=== PATIENT | female | born 1965 | race Caucasian/White ===

== ENCOUNTER 2016-10-23 15:16 | Emergency (ER) | payer MEDICAID ==
[~2016-10-23] VITALS: Ht 170.2 cm; Wt 98.8 kg
[~2016-10-23 15:16] MED LIST: SERT25TA PO
[2016-10-23] MEDS ORDERED: OXYcodone/APAP 5/325MG TABLET ONE (16:29)
[2016-10-23] MEDS ORDERED: ONDANSETRON ODT 4 MG ONE (16:29)
[2016-10-23] MEDS ORDERED: OXYcodone/APAP 5/325MG TABLET PO ONE (16:30)
[2016-10-23] MEDS ORDERED: ONDANSETRON ODT 4 MG PO ONE (16:30)
[2016-10-23 16:59] VITALS: BP 129/81
== END 2016-10-23 17:01 | disposition home or self-care (01) ==
LOC: ED 16:15
DX: M54.2 Cervicalgia (principal); G89.29 Other chronic pain; F32.9 Major depressive disorder, single episode, unspecified
CPT/HCPCS: 99283; Q0162

== ENCOUNTER 2016-10-27 16:09 | Emergency (ER) | payer MEDICAID ==
[~2016-10-27] VITALS: Ht 170.2 cm; Wt 100.6 kg
[2016-10-27 16:12] VITALS: BP 143/99
[2016-10-27] MEDS ORDERED: ONDANSETRON ODT 4 MG ONE (16:48)
[2016-10-27] MEDS ORDERED: DIAZEPAM 5 MG TABLET ONE (16:48)
[2016-10-27] MEDS ORDERED: KETOROLAC 30 MG/1 ML ONE (16:48)
[2016-10-27] MEDS ORDERED: KETOROLAC 30 MG/1 ML IM ONE (17:00)
[2016-10-27] MEDS ORDERED: ONDANSETRON ODT 4 MG PO ONE (17:00)
[2016-10-27] MEDS ORDERED: DIAZEPAM 5 MG TABLET PO ONE (17:00)
== END 2016-10-27 18:12 | disposition home or self-care (01) ==
LOC: ED 17:15
DX: S16.1XXA Strain of muscle, fascia and tendon at neck level, initial encounter (principal); M19.90 Unspecified osteoarthritis, unspecified site; X58.XXXA Exposure to other specified factors, initial encounter; Y93.89 Activity, other specified; Y92.89 Other specified places as the place of occurrence of the external cause; Y99.8 Other external cause status; Z88.6 Allergy status to analgesic agent
CPT/HCPCS: 96372; 99283; J1885; Q0162

== ENCOUNTER 2016-12-22 14:30 | Emergency (ER) | payer MEDICAID ==
[~2016-12-22] VITALS: Ht 170.2 cm; Wt 96.1 kg
[2016-12-22 14:32] VITALS: BP 144/89
== END 2016-12-22 16:27 | disposition home or self-care (01) ==
LOC: ED 16:21
DX: S92.411A Displaced fracture of proximal phalanx of right great toe, initial encounter for closed fracture (principal); X58.XXXA Exposure to other specified factors, initial encounter; Y93.89 Activity, other specified; Y99.8 Other external cause status; Y92.410 Unspecified street and highway as the place of occurrence of the external cause

== ENCOUNTER 2017-03-14 13:52 | Emergency (ER) | payer MEDICAID ==
[~2017-03-14] VITALS: Ht 170.2 cm; Wt 82.0 kg
[2017-03-14] MEDS ORDERED: LORazepam 1MG TABLET PO ONE (14:30)
[2017-03-14] MEDS ORDERED: LIDOCAINE 1%, 20ML SQ ONE (14:30)
[2017-03-14] MEDS ORDERED: LORazepam 1MG TABLET ONE (14:36)
[2017-03-14] MEDS ORDERED: LIDOCAINE 1%, 20ML ONE (14:48)
[2017-03-14 15:24] VITALS: BP 118/68
== END 2017-03-14 16:53 | disposition home or self-care (01) ==
LOC: ED 14:47
DX: S02.5XXA Fracture of tooth (traumatic), initial encounter for closed fracture (principal); S01.512A Laceration without foreign body of oral cavity, initial encounter; S16.1XXA Strain of muscle, fascia and tendon at neck level, initial encounter; F10.120 Alcohol abuse with intoxication, uncomplicated; M19.90 Unspecified osteoarthritis, unspecified site; X58.XXXA Exposure to other specified factors, initial encounter; Y93.89 Activity, other specified; Y99.8 Other external cause status; Y92.89 Other specified places as the place of occurrence of the external cause; G89.29 Other chronic pain; M54.2 Cervicalgia
CPT/HCPCS: 12011; 70450; 70486; 72125; 99284

== ENCOUNTER 2017-05-02 12:58 | Emergency (ER) | payer MEDICAID ==
[~2017-05-02] VITALS: Ht 167.6 cm; Wt 80.0 kg
[2017-05-02 15:36] VITALS: BP 131/72
== END 2017-05-02 15:29 | disposition home or self-care (01) ==
LOC: ED 14:24
DX: F10.120 Alcohol abuse with intoxication, uncomplicated (principal)
CPT/HCPCS: 99283

== ENCOUNTER 2017-09-27 13:21 | Emergency (ER) | payer MEDICAID ==
[~2017-09-27] VITALS: Ht 170.2 cm; Wt 80.0 kg
[2017-09-27 13:23] VITALS: BP 118/94
== END 2017-09-27 15:43 | disposition home or self-care (01) ==
LOC: ED 13:58
DX: F41.1 Generalized anxiety disorder (principal); F17.200 Nicotine dependence, unspecified, uncomplicated
CPT/HCPCS: 74021; 99284

== ENCOUNTER 2017-12-10 16:10 | Inpatient (IN) | payer MEDICAID ==
[~2017-12-10] VITALS: Ht 170.2 cm; Wt 102.7 kg
[2017-12-10 07:30] VITALS: BP 109/75
[2017-12-10 16:54] LABS: BASOPHILS # (AUTO) 0.05 x10^3/uL (0-0.1); BASOPHILS % (AUTO) 1 % (0-1); EOSINOPHILS # (AUTO) 0.21 x10^3/uL (0-0.4); EOSINOPHILS % (AUTO) 4 % (1-7); LYMPHOCYTES # (AUTO) 2.07 x10^3/uL (1-3.4); LYMPHOCYTES % (AUTO) 35 % (22-44); MD NO; MEAN CORPUSCULAR HEMOGLOBIN 33.2 pg (27.0-34.8); MEAN CORPUSCULAR HGB CONC 33.7 g/dL (32.4-35.8); MEAN CORPUSCULAR VOLUME 98.4 fL (80-100); MEAN PLATELET VOLUME 7.6 fL (7.4-10.4); MONOCYTES # (AUTO) 0.54 x10^3/uL (0.2-0.8); MONOCYTES % (AUTO) 9 % (2-9); NEUTROPHILS # (AUTO) 3.11 x10^3/uL (1.8-6.8); NEUTROPHILS % (AUTO) 52 % (42-75); PLATELET COUNT 310 x10^3/uL (130-400); RED BLOOD COUNT 4.28 x10^6/uL (3.82-5.3); RED CELL DISTRIBUTION WIDTH 14.2 % (9.6-15.2)
[2017-12-10 16:58] LABS: PROTHROMBIN TIME 10.3 Seconds (9.6-11.5)
[2017-12-10] MEDS ORDERED: VANCOMYCIN PER PHARMACY IV ONE (17:00)
[2017-12-10] MEDS ORDERED: PIPERACILLIN/TAZO/PMX 3.375GM 50 ML IVPB ONE (17:00)
[2017-12-10] MEDS ORDERED: VANCOMYCIN 1,700 MG in SODIUM CHLORIDE 0.9% 250 ML IV ONE (17:00)
[2017-12-10 17:04] LABS: ALANINE AMINOTRANSFERASE 57 U/L (12-78); ALBUMIN 3.8 g/dL (3.4-5.0); ANION GAP 9 mmol/L (5-15); CALCIUM 8.5 mg/dL (8.5-10.1); CHLORIDE 112 mmol/L (98-107); CREATININE 0.89 mg/dL (0.55-1.02)
[2017-12-10 17:08] LABS: ALKALINE PHOSPHATASE 98 U/L (45-117); BILIRUBIN,TOTAL 0.3 mg/dL (0.2-1.0); TOTAL PROTEIN 7.7 g/dL (6.4-8.2); TROPONIN I < 0.015 ng/mL (0.000-0.045)
[2017-12-10] MEDS ORDERED: PIPERACILLIN/TAZO/PMX 3.375GM 50 ML ONE (17:38)
[2017-12-10] MEDS: POTASSIUM CHLORIDE 20 MEQ, MVI ADULT 10 ML, FOLIC ACID 1 MG, MAGNESIUM SULFATE 2 GM in ... IV SCH ×2 (17:41→20:08)
[2017-12-10] MEDS ORDERED: ONDANSETRON 2MG/ML, 2ML IVPush PRN (18:00)
[2017-12-10] MEDS ORDERED: DOCUSATE 100 MG CAPSULE PO PRN (18:00)
[2017-12-10] MEDS ORDERED: LORazepam 2 MG/ML, 1ML IV PRN ×4 (18:00)
[2017-12-10] MEDS ORDERED: SODIUM CHLORIDE 0.9% 1,000ML IVBOLUS ONE (18:30)
[2017-12-10 19:30] VITALS: BP 109/75
[2017-12-10] MEDS: ENOXAPARIN 40 MG/0.4 ML SQ SCH (20:17)
[2017-12-10] MEDS: CEFTRIAXONE PMX 1GM/50ML 50 ML IV SCH (20:24)
[2017-12-10] MEDS: SODIUM CHLORIDE 0.9% 1,000 ML IV SCH (20:24)
[2017-12-10] MEDS: NICOTINE 7 MG/24 HR PATCH.TD24 TD SCH (20:24)
[2017-12-10] MEDS: AZITHROMYCIN 500 MG in SODIUM CHLORIDE 0.9% 250 ML IV SCH (22:01)
[2017-12-10 22:05] VITALS: BP 109/75
[2017-12-10] MEDS: ACETAMINOPHEN 325 MG TABLET PO PRN (23:22)
[2017-12-10 23:46] VITALS: BP 99/68
[2017-12-11] MEDS: POTASSIUM CHLORIDE 20 MEQ, MVI ADULT 10 ML, FOLIC ACID 1 MG, MAGNESIUM SULFATE 2 GM in ... IV SCH ×2 (01:03→07:21)
[2017-12-11 01:09] VITALS: BP 100/66
[2017-12-11 05:18] LABS: BASOPHILS # (AUTO) 0.03 x10^3/uL (0-0.1); BASOPHILS % (AUTO) 1 % (0-1); EOSINOPHILS # (AUTO) 0.11 x10^3/uL (0-0.4); EOSINOPHILS % (AUTO) 2 % (1-7); LYMPHOCYTES # (AUTO) 1.78 x10^3/uL (1-3.4); LYMPHOCYTES % (AUTO) 39 % (22-44); MD NO; MEAN CORPUSCULAR HEMOGLOBIN 33.5 pg (27.0-34.8); MEAN CORPUSCULAR HGB CONC 33.9 g/dL (32.4-35.8); MEAN PLATELET VOLUME 7.6 fL (7.4-10.4); MONOCYTES # (AUTO) 0.49 x10^3/uL (0.2-0.8); MONOCYTES % (AUTO) 11 % (2-9); NEUTROPHILS # (AUTO) 2.15 x10^3/uL (1.8-6.8); NEUTROPHILS % (AUTO) 47 % (42-75); PLATELET COUNT 222 x10^3/uL (130-400); RED BLOOD COUNT 3.52 x10^6/uL (3.82-5.3)
[2017-12-11 05:18] LABS: ALBUMIN 2.9 g/dL (3.4-5.0); ANION GAP 10 mmol/L (5-15); CALCIUM 7.4 mg/dL (8.5-10.1); CHLORIDE 115 mmol/L (98-107)
[2017-12-11 05:23] LABS: ALANINE AMINOTRANSFERASE 45 U/L (12-78); ALKALINE PHOSPHATASE 79 U/L (45-117); BILIRUBIN,TOTAL 0.3 mg/dL (0.2-1.0); TOTAL PROTEIN 6.1 g/dL (6.4-8.2)
[2017-12-11] MEDS: LORazepam 2 MG/ML, 1ML IV PRN ×2 (06:14→14:31)
[2017-12-11] MEDS ORDERED: ALPR1TAB2 PO (06:36)
[2017-12-11 08:00] VITALS: BP 106/74
[2017-12-11] MEDS: ACETAMINOPHEN 325 MG TABLET PO PRN (08:32)
[2017-12-11] MEDS: SODIUM CHLORIDE 0.9% 1,000 ML IV SCH (08:34)
[2017-12-11] MEDS: NEUTRA PHOS K 250 MG TABLET PO SCH ×3 (09:16→20:50)
[2017-12-11] MEDS ORDERED: METOCLOPRAMIDE 5 MG/ML, 2ML IVPush ONE (09:30)
[2017-12-11 12:37] VITALS: BP 117/87
[2017-12-11] MEDS ORDERED: SODIUM CHLORIDE 0.9% 1,000 ML IV SCH (14:00)
[2017-12-11 20:00] VITALS: BP 103/73
[2017-12-11] MEDS: CEFTRIAXONE PMX 1GM/50ML 50 ML IV SCH (20:50)
[2017-12-11] MEDS: ENOXAPARIN 40 MG/0.4 ML SQ SCH (20:50)
[2017-12-11] MEDS: NICOTINE 7 MG/24 HR PATCH.TD24 TD SCH (20:51)
[2017-12-11] MEDS: LORazepam 0.5MG TABLET PO PRN (20:51)
[2017-12-11] MEDS ORDERED: LORazepam 1MG TABLET PO PRN ×4 (21:00)
[2017-12-11] MEDS: AZITHROMYCIN 500 MG in SODIUM CHLORIDE 0.9% 250 ML IV SCH (22:27)
[2017-12-12] MEDS: ACETAMINOPHEN 325 MG TABLET PO PRN (01:27)
[2017-12-12] MEDS: LORazepam 0.5MG TABLET PO PRN ×3 (01:27→21:05)
[2017-12-12] MEDS: POTASSIUM CHLORIDE 20 MEQ, MVI ADULT 10 ML, FOLIC ACID 1 MG, MAGNESIUM SULFATE 2 GM in ... IV SCH (01:27)
[2017-12-12 02:00] VITALS: BP 125/86
[2017-12-12 05:08] LABS: BASOPHILS # (AUTO) 0.03 x10^3/uL (0-0.1); BASOPHILS % (AUTO) 1 % (0-1); EOSINOPHILS # (AUTO) 0.16 x10^3/uL (0-0.4); EOSINOPHILS % (AUTO) 4 % (1-7); LYMPHOCYTES # (AUTO) 1.27 x10^3/uL (1-3.4); LYMPHOCYTES % (AUTO) 28 % (22-44); MD NO; MEAN CORPUSCULAR HEMOGLOBIN 33.7 pg (27.0-34.8); MEAN CORPUSCULAR VOLUME 99.1 fL (80-100); MEAN PLATELET VOLUME 7.8 fL (7.4-10.4); MONOCYTES # (AUTO) 0.38 x10^3/uL (0.2-0.8); MONOCYTES % (AUTO) 8 % (2-9); NEUTROPHILS # (AUTO) 2.72 x10^3/uL (1.8-6.8); NEUTROPHILS % (AUTO) 60 % (42-75); PLATELET COUNT 195 x10^3/uL (130-400); RED BLOOD COUNT 3.35 x10^6/uL (3.82-5.3); RED CELL DISTRIBUTION WIDTH 13.5 % (9.6-15.2)
[2017-12-12 05:16] LABS: ANION GAP 7 mmol/L (5-15); CALCIUM 8.1 mg/dL (8.5-10.1); CHLORIDE 112 mmol/L (98-107)
[2017-12-12 05:19] LABS: CREATININE 0.66 mg/dL (0.55-1.02)
[2017-12-12 07:57] VITALS: BP 134/91
[2017-12-12] MEDS ORDERED: HYDROcodone/APAP 5/325 TABLET PO PRN (11:00)
[2017-12-12] MEDS: HYDROcodone/APAP 5/325 TABLET PO PRN ×2 (11:09→18:33)
[2017-12-12 14:36] VITALS: BP 109/73
[2017-12-12 20:00] VITALS: BP 117/86
[2017-12-12] MEDS: NICOTINE 7 MG/24 HR PATCH.TD24 TD SCH (20:53)
[2017-12-12] MEDS: CEFTRIAXONE PMX 1GM/50ML 50 ML IV SCH (21:05)
[2017-12-12] MEDS: ENOXAPARIN 40 MG/0.4 ML SQ SCH (21:05)
[2017-12-12] MEDS: AZITHROMYCIN 500 MG in SODIUM CHLORIDE 0.9% 250 ML IV SCH (22:35)
[2017-12-13] MEDS: HYDROcodone/APAP 5/325 TABLET PO PRN ×2 (01:13→08:52)
[2017-12-13] MEDS: POTASSIUM CHLORIDE 20 MEQ, MVI ADULT 10 ML, FOLIC ACID 1 MG, MAGNESIUM SULFATE 2 GM in ... IV SCH (01:14)
[2017-12-13 01:56] VITALS: BP 127/87
[2017-12-13] MEDS: LORazepam 0.5MG TABLET PO PRN (06:42)
[2017-12-13 08:20] VITALS: BP 126/92
[2017-12-13] MEDS ORDERED: AZIT500T5 PO (11:55)
[2017-12-13] MEDS ORDERED: ACET-1600 PO (11:55)
[2017-12-13] MEDS ORDERED: MULT-224 PO (11:55)
[2017-12-13] MEDS ORDERED: CEFD300C37 PO (11:55)
[2017-12-13] MEDS ORDERED: GABA100C PO (11:55)
== END 2017-12-13 14:10 | disposition home or self-care (01) | DRG 871 ==
LOC: ED 17:04 → EDIP 17:22 → 4WST 18:33 → DCLOUNGE 12-13 13:43
PROVIDERS: ADMIT Internal Medicine; ATTEND Internal Medicine
DX: A41.9 Sepsis, unspecified organism (principal); J15.9 Unspecified bacterial pneumonia; J96.01 Acute respiratory failure with hypoxia; E87.2 Acidosis; E83.39 Other disorders of phosphorus metabolism; Z59.0 Homelessness; F10.10 Alcohol abuse, uncomplicated; F17.210 Nicotine dependence, cigarettes, uncomplicated; F41.1 Generalized anxiety disorder; K21.9 Gastro-esophageal reflux disease without esophagitis; R65.20 Severe sepsis without septic shock; Z82.61 Family history of arthritis
CPT/HCPCS: 36415; 71045; 80048; 80053; 83605; 83735; 83880; 84100; 84145; 84484; 85025; 85610; 87040; 87205; 93005; 96365; J0456; J0696; J1650; J2543; J3475; J3480; J7042; J2060; J2765; J7030; J7050

== ENCOUNTER 2017-12-14 15:34 | Emergency (ER) | payer MEDICAID ==
[~2017-12-14] VITALS: Ht 170.2 cm; Wt 95.0 kg
[~2017-12-14 15:34] MED LIST changes: +ACET-1600 PO; +ALPR1TAB2 PO; +AZIT500T5 PO; +CEFD300C37 PO; +GABA100C PO; +MULT-224 PO
[2017-12-14 16:00] LABS: BASOPHILS # (AUTO) 0.03 x10^3/uL (0-0.1); BASOPHILS % (AUTO) 1 % (0-1); EOSINOPHILS # (AUTO) 0.11 x10^3/uL (0-0.4); EOSINOPHILS % (AUTO) 2 % (1-7); LYMPHOCYTES # (AUTO) 1.84 x10^3/uL (1-3.4); LYMPHOCYTES % (AUTO) 36 % (22-44); MD NO; MEAN CORPUSCULAR HEMOGLOBIN 32.9 pg (27.0-34.8); MEAN CORPUSCULAR HGB CONC 33.3 g/dL (32.4-35.8); MEAN CORPUSCULAR VOLUME 98.7 fL (80-100); MEAN PLATELET VOLUME 7.1 fL (7.4-10.4); MONOCYTES # (AUTO) 0.46 x10^3/uL (0.2-0.8); MONOCYTES % (AUTO) 9 % (2-9); NEUTROPHILS # (AUTO) 2.74 x10^3/uL (1.8-6.8); NEUTROPHILS % (AUTO) 53 % (42-75); PLATELET COUNT 270 x10^3/uL (130-400); RED BLOOD COUNT 3.93 x10^6/uL (3.82-5.3); RED CELL DISTRIBUTION WIDTH 14.5 % (9.6-15.2)
[2017-12-14] MEDS ORDERED: SODIUM CHLORIDE 0.9% 1,000ML IVBOLUS ONE (16:00)
[2017-12-14] MEDS ORDERED: SODIUM CHLORIDE FLUSH 10ML SYR IVF ONE (16:00)
[2017-12-14 16:07] LABS: ALANINE AMINOTRANSFERASE 40 U/L (12-78); ALBUMIN 3.5 g/dL (3.4-5.0); ANION GAP 8 mmol/L (5-15); CALCIUM 8.1 mg/dL (8.5-10.1); CHLORIDE 115 mmol/L (98-107)
[2017-12-14 16:09] LABS: ALKALINE PHOSPHATASE 85 U/L (45-117); BILIRUBIN,TOTAL 0.2 mg/dL (0.2-1.0)
[2017-12-14 21:07] VITALS: BP 114/69
== END 2017-12-14 21:10 | disposition home or self-care (01) ==
LOC: ED 16:50
DX: F10.229 Alcohol dependence with intoxication, unspecified (principal); S09.90XA Unspecified injury of head, initial encounter; S00.81XA Abrasion of other part of head, initial encounter; S89.92XA Unspecified injury of left lower leg, initial encounter; S89.91XA Unspecified injury of right lower leg, initial encounter; X58.XXXA Exposure to other specified factors, initial encounter; Y93.89 Activity, other specified; Y99.8 Other external cause status; Y92.89 Other specified places as the place of occurrence of the external cause
CPT/HCPCS: 36415; 70450; 72125; 80053; 80307; 83735; 85025; 96360; 99285; J7030

== ENCOUNTER 2017-12-15 00:42 | Emergency (ER) | payer MEDICAID ==
[~2017-12-15] VITALS: Ht 160 cm; Wt 95.0 kg
[2017-12-15 01:21] LABS: BASOPHILS # (AUTO) 0.05 x10^3/uL (0-0.1); BASOPHILS % (AUTO) 1 % (0-1); EOSINOPHILS # (AUTO) 0.17 x10^3/uL (0-0.4); EOSINOPHILS % (AUTO) 3 % (1-7); LYMPHOCYTES # (AUTO) 2.41 x10^3/uL (1-3.4); LYMPHOCYTES % (AUTO) 35 % (22-44); MD NO; MEAN CORPUSCULAR HEMOGLOBIN 33.5 pg (27.0-34.8); MEAN CORPUSCULAR HGB CONC 33.5 g/dL (32.4-35.8); MEAN CORPUSCULAR VOLUME 99.9 fL (80-100); MEAN PLATELET VOLUME 6.9 fL (7.4-10.4); MONOCYTES # (AUTO) 0.69 x10^3/uL (0.2-0.8); MONOCYTES % (AUTO) 10 % (2-9); NEUTROPHILS # (AUTO) 3.49 x10^3/uL (1.8-6.8); NEUTROPHILS % (AUTO) 51 % (42-75); PLATELET COUNT 267 x10^3/uL (130-400); RED CELL DISTRIBUTION WIDTH 14.4 % (9.6-15.2)
[2017-12-15 01:30] LABS: ALANINE AMINOTRANSFERASE 41 U/L (12-78); ALBUMIN 3.5 g/dL (3.4-5.0); ANION GAP 12 mmol/L (5-15); CALCIUM 8.3 mg/dL (8.5-10.1); CHLORIDE 114 mmol/L (98-107); CREATININE 0.71 mg/dL (0.55-1.02)
[2017-12-15 01:53] LABS: ALKALINE PHOSPHATASE 85 U/L (45-117); BILIRUBIN,TOTAL 0.2 mg/dL (0.2-1.0); SALICYLATE LEVEL 2.1 mg/dL (2.8-20.0)
[2017-12-15 01:56] LABS: ACETAMINOPHEN < 2 mcg/mL (10-30)
[2017-12-15 02:52] VITALS: BP 94/63
== END 2017-12-15 06:26 | disposition home or self-care (01) ==
LOC: ED 00:54
DX: G93.41 Metabolic encephalopathy (principal); F22 Delusional disorders; F10.129 Alcohol abuse with intoxication, unspecified; F19.10 Other psychoactive substance abuse, uncomplicated; Z88.5 Allergy status to narcotic agent; Z88.8 Allergy status to other drugs, medicaments and biological substances; F41.9 Anxiety disorder, unspecified; G89.29 Other chronic pain; M19.90 Unspecified osteoarthritis, unspecified site; I25.2 Old myocardial infarction; Z79.899 Other long term (current) drug therapy
CPT/HCPCS: 36415; 70450; 71045; 80053; 80307; 80329; 85025; 93005; 99285; G0480

== ENCOUNTER 2017-12-21 13:07 | Inpatient (IN) | payer MEDICAID ==
[~2017-12-21] VITALS: Ht 170.2 cm; Wt 102.0 kg
[2017-12-21] MEDS ORDERED: ALBUTEROL/IPRATROPIUM 2.5MG/0.5MG, 3 ML ONE (13:57)
[2017-12-21] MEDS ORDERED: SODIUM CHLORIDE FLUSH 10ML SYR IVF ONE (14:00)
[2017-12-21] MEDS ORDERED: ALBUTEROL/IPRATROPIUM 2.5MG/0.5MG, 3 ML NPPB ONE (14:00)
[2017-12-21 14:27] LABS: BASOPHILS # (AUTO) 0.03 x10^3/uL (0-0.1); BASOPHILS % (AUTO) 1 % (0-1); EOSINOPHILS # (AUTO) 0.08 x10^3/uL (0-0.4); EOSINOPHILS % (AUTO) 2 % (1-7); LYMPHOCYTES # (AUTO) 1.39 x10^3/uL (1-3.4); LYMPHOCYTES % (AUTO) 29 % (22-44); MEAN CORPUSCULAR HEMOGLOBIN 33.4 pg (27.0-34.8); MEAN CORPUSCULAR HGB CONC 33.4 g/dL (32.4-35.8); MEAN CORPUSCULAR VOLUME 100.1 fL (80-100); MEAN PLATELET VOLUME 6.9 fL (7.4-10.4); MONOCYTES # (AUTO) 0.51 x10^3/uL (0.2-0.8); MONOCYTES % (AUTO) 11 % (2-9); NEUTROPHILS # (AUTO) 2.85 x10^3/uL (1.8-6.8); NEUTROPHILS % (AUTO) 59 % (42-75); PLATELET COUNT 154 x10^3/uL (130-400); RED BLOOD COUNT 3.76 x10^6/uL (3.82-5.3); RED CELL DISTRIBUTION WIDTH 15.9 % (9.6-15.2)
[2017-12-21 14:28] LABS: MD NO
[2017-12-21 14:36] LABS: ALANINE AMINOTRANSFERASE 56 U/L (12-78); ALBUMIN 3.6 g/dL (3.4-5.0); ANION GAP 12 mmol/L (5-15); CHLORIDE 107 mmol/L (98-107); CREATININE 0.66 mg/dL (0.55-1.02)
[2017-12-21 14:41] LABS: ALKALINE PHOSPHATASE 131 U/L (45-117); BILIRUBIN,TOTAL 0.4 mg/dL (0.2-1.0); TOTAL PROTEIN 7.2 g/dL (6.4-8.2)
[2017-12-21] MEDS: NS + 20MEQ KCL 1,000 ML IV SCH (16:23)
[2017-12-21] MEDS ORDERED: LORazepam 1MG TABLET PO PRN (16:30)
[2017-12-21] MEDS: DOXYCYCLINE 100 MG in DEXTROSE 5% 250 ML IV SCH (16:30)
[2017-12-21] MEDS ORDERED: ENOXAPARIN 40 MG/0.4 ML SQ SCH (16:30)
[2017-12-21] MEDS ORDERED: THIAMINE 100MG TABLET PO ONE (16:30)
[2017-12-21] MEDS ORDERED: LORazepam 2 MG/ML, 1ML IV PRN ×4 (16:30)
[2017-12-21] MEDS ORDERED: ONDANSETRON 2MG/ML, 2ML IVPush PRN (16:30)
[2017-12-21] MEDS ORDERED: ENOXAPARIN 40 MG/0.4 ML ONE (16:38)
[2017-12-21] MEDS ORDERED: methylPREDNISolone SOD SUCC 40 MG/ML ONE (16:38)
[2017-12-21] MEDS ORDERED: NS + 20MEQ KCL 1,000 ML IV ONE (16:39)
[2017-12-21] MEDS: methylPREDNISolone SOD SUCC 40 MG/ML IVPush SCH ×2 (16:47→23:52)
[2017-12-21] MEDS ORDERED: SODIUM CHLORIDE FLUSH 10ML SYR IVF PRN (17:00)
[2017-12-21 21:15] VITALS: BP 105/71
[2017-12-21] MEDS ORDERED: TEMAZEPAM 15 MG CAPSULE PO PRN (23:30)
[2017-12-22] MEDS: ONDANSETRON ODT 4 MG PO PRN ×4 (00:32→19:54)
[2017-12-22 01:42] VITALS: BP 115/79
[2017-12-22] MEDS: DOXYCYCLINE 100 MG in DEXTROSE 5% 250 ML IV SCH ×2 (04:37→17:12)
[2017-12-22 05:31] LABS: BASOPHILS % (AUTO) 0 % (0-1); EOSINOPHILS % (AUTO) 0 % (1-7); LYMPHOCYTES # (AUTO) 0.46 x10^3/uL (1-3.4); LYMPHOCYTES % (AUTO) 16 % (22-44); MD NO; MEAN CORPUSCULAR HEMOGLOBIN 33.2 pg (27.0-34.8); MEAN CORPUSCULAR HGB CONC 33.3 g/dL (32.4-35.8); MEAN CORPUSCULAR VOLUME 99.5 fL (80-100); MEAN PLATELET VOLUME 7.5 fL (7.4-10.4); MONOCYTES # (AUTO) 0.03 x10^3/uL (0.2-0.8); MONOCYTES % (AUTO) 1 % (2-9); NEUTROPHILS # (AUTO) 2.45 x10^3/uL (1.8-6.8); NEUTROPHILS % (AUTO) 83 % (42-75); PLATELET COUNT 124 x10^3/uL (130-400); RED BLOOD COUNT 3.59 x10^6/uL (3.82-5.3); RED CELL DISTRIBUTION WIDTH 15.5 % (9.6-15.2)
[2017-12-22] MEDS: methylPREDNISolone SOD SUCC 40 MG/ML IVPush SCH (05:46)
[2017-12-22 05:48] LABS: CHLORIDE 104 mmol/L (98-107)
[2017-12-22 06:07] LABS: ALANINE AMINOTRANSFERASE 74 U/L (12-78); ALBUMIN 3.2 g/dL (3.4-5.0); ALKALINE PHOSPHATASE 121 U/L (45-117); ANION GAP 13 mmol/L (5-15); BILIRUBIN,TOTAL 0.6 mg/dL (0.2-1.0); CALCIUM 7.8 mg/dL (8.5-10.1); CREATININE 0.53 mg/dL (0.55-1.02); THYROID STIMULATING HORMONE 0.406 mIU/L (0.358-3.740); TOTAL PROTEIN 6.6 g/dL (6.4-8.2)
[2017-12-22] MEDS ORDERED: MAGNESIUM SULFATE PMX 2GM/50ML 50 ML IV ONE (07:30)
[2017-12-22 08:55] VITALS: BP 131/88
[2017-12-22] MEDS: LORazepam 1MG TABLET PO PRN ×3 (09:06→19:54)
[2017-12-22] MEDS: MULTIVITAMIN 1 TABLET PO SCH (09:06)
[2017-12-22] MEDS: NS + 20MEQ KCL 1,000 ML IV SCH (09:06)
[2017-12-22] MEDS: FOLIC ACID 1 MG TABLET PO SCH (09:06)
[2017-12-22] MEDS ORDERED: ACETAMINOPHEN 325 MG TABLET PO PRN (11:00)
[2017-12-22] MEDS: HYDROcodone/APAP 5/325 TABLET PO PRN ×2 (14:10→19:54)
[2017-12-22 14:32] VITALS: BP 115/79
[2017-12-22 21:21] VITALS: BP 141/95
[2017-12-23] MEDS: LORazepam 0.5MG TABLET PO PRN ×2 (01:50→10:51)
[2017-12-23] MEDS: ONDANSETRON ODT 4 MG PO PRN (01:50)
[2017-12-23] MEDS: HYDROcodone/APAP 5/325 TABLET PO PRN ×3 (01:50→22:32)
[2017-12-23] MEDS: NS + 20MEQ KCL 1,000 ML IV SCH (01:51)
[2017-12-23 03:17] VITALS: BP 123/87
[2017-12-23] MEDS: DOXYCYCLINE 100 MG in DEXTROSE 5% 250 ML IV SCH ×2 (04:35→17:46)
[2017-12-23 06:47] VITALS: BP 100/76
[2017-12-23] MEDS: FOLIC ACID 1 MG TABLET PO SCH (08:44)
[2017-12-23] MEDS: MULTIVITAMIN 1 TABLET PO SCH (08:44)
[2017-12-23 13:45] VITALS: BP 118/83
[2017-12-23 20:23] VITALS: BP 121/86
[2017-12-24 02:11] VITALS: BP 115/78
[2017-12-24] MEDS: DOXYCYCLINE 100 MG in DEXTROSE 5% 250 ML IV SCH (04:31)
[2017-12-24] MEDS: HYDROcodone/APAP 5/325 TABLET PO PRN ×2 (04:32→10:33)
[2017-12-24] MEDS: ONDANSETRON ODT 4 MG PO PRN ×2 (04:57→08:50)
[2017-12-24] MEDS ORDERED: DOXY100T PO (07:10)
[2017-12-24] MEDS ORDERED: FOLI-17 PO (07:10)
[2017-12-24] MEDS ORDERED: MULT1TAB60 PO (07:10)
[2017-12-24 07:49] VITALS: BP 136/94
[2017-12-24] MEDS: FOLIC ACID 1 MG TABLET PO SCH (08:50)
[2017-12-24] MEDS: MULTIVITAMIN 1 TABLET PO SCH (08:50)
== END 2017-12-24 12:30 | disposition home or self-care (01) | DRG 189 ==
LOC: ED 15:37 → EDIP 15:44 → 3NE 18:20
PROVIDERS: ADMIT Internal Medicine; ATTEND Internal Medicine
DX: J96.01 Acute respiratory failure with hypoxia (principal); J44.1 Chronic obstructive pulmonary disease with (acute) exacerbation; D53.9 Nutritional anemia, unspecified; E87.6 Hypokalemia; F10.229 Alcohol dependence with intoxication, unspecified; F17.210 Nicotine dependence, cigarettes, uncomplicated; F32.9 Major depressive disorder, single episode, unspecified; F41.1 Generalized anxiety disorder; K21.9 Gastro-esophageal reflux disease without esophagitis; S80.12XA Contusion of left lower leg, initial encounter; W01.0XXA Fall on same level from slipping, tripping and stumbling without subsequent striking against object, initial encounter; Y90.8 Blood alcohol level of 240 mg/100 ml or more; G43.909 Migraine, unspecified, not intractable, without status migrainosus; Z59.0 Homelessness; Y93.89 Activity, other specified; Y92.89 Other specified places as the place of occurrence of the external cause; Y99.8 Other external cause status
CPT/HCPCS: 36415; 71045; 80053; 80307; 82140; 83735; 83880; 84100; 84443; 85014; 85018; 85025; 87040; 93005; 94640; 96372; 99285; J1650; J3480; J7060; J7620; Q0162; J2920; J3475

== ENCOUNTER 2018-01-13 08:50 | Emergency (ER) | payer MEDICAID ==
[~2018-01-13] VITALS: Ht 170.2 cm; Wt 88.8 kg
[~2018-01-13 08:50] MED LIST changes: +DOXY100T PO; +FOLI-17 PO; +MULT1TAB60 PO
[2018-01-13 10:10] LABS: BASOPHILS # (AUTO) 0.01 x10^3/uL (0-0.1); BASOPHILS % (AUTO) 0 % (0-1); EOSINOPHILS # (AUTO) 0.02 x10^3/uL (0-0.4); EOSINOPHILS % (AUTO) 1 % (1-7); LYMPHOCYTES # (AUTO) 0.52 x10^3/uL (1-3.4); LYMPHOCYTES % (AUTO) 12 % (22-44); MD NO; MEAN CORPUSCULAR HEMOGLOBIN 34.6 pg (27.0-34.8); MEAN CORPUSCULAR HGB CONC 34.5 g/dL (32.4-35.8); MEAN CORPUSCULAR VOLUME 100.2 fL (80-100); MONOCYTES # (AUTO) 0.41 x10^3/uL (0.2-0.8); MONOCYTES % (AUTO) 10 % (2-9); NEUTROPHILS # (AUTO) 3.35 x10^3/uL (1.8-6.8); NEUTROPHILS % (AUTO) 78 % (42-75); PLATELET COUNT 155 x10^3/uL (130-400); RED BLOOD COUNT 3.52 x10^6/uL (3.82-5.3); RED CELL DISTRIBUTION WIDTH 17.3 % (9.6-15.2)
[2018-01-13] MEDS ORDERED: ONDANSETRON ODT 4 MG ONE (10:10)
[2018-01-13] MEDS ORDERED: THIAMINE 100MG TABLET ONE (10:10)
[2018-01-13] MEDS ORDERED: LORazepam 1MG TABLET ONE (10:10)
[2018-01-13 10:18] LABS: ALBUMIN 3.6 g/dL (3.4-5.0); ANION GAP 15 mmol/L (5-15); CALCIUM 8.5 mg/dL (8.5-10.1); CHLORIDE 97 mmol/L (98-107); CREATININE 0.57 mg/dL (0.55-1.02)
[2018-01-13 10:58] VITALS: BP 151/106
[2018-01-13] MEDS ORDERED: THIAMINE 100MG TABLET PO ONE (11:00)
[2018-01-13] MEDS ORDERED: SODIUM CHLORIDE FLUSH 10ML SYR IVF ONE (11:00)
[2018-01-13] MEDS ORDERED: ONDANSETRON ODT 4 MG PO ONE (11:00)
[2018-01-13] MEDS ORDERED: SODIUM CHLORIDE 0.9% 1,000ML IVBOLUS ONE (11:00)
== END 2018-01-13 11:30 | disposition home or self-care (01) ==
LOC: ED 11:24
DX: M79.662 Pain in left lower leg (principal); F10.20 Alcohol dependence, uncomplicated
CPT/HCPCS: 36415; 80048; 82040; 85025; 93005; 96360; 96361; 99285; J7030; Q0162

== ENCOUNTER 2018-02-16 20:02 | Emergency (ER) | payer MEDICAID ==
[~2018-02-16] VITALS: Ht 170.2 cm; Wt 83.5 kg
[2018-02-16 20:05] VITALS: BP 120/90
[2018-02-17] MEDS ORDERED: ALPR1TAB2 PO (22:28)
== END 2018-02-16 20:54 | disposition home or self-care (01) ==
LOC: ED 20:35
DX: S80.12XA Contusion of left lower leg, initial encounter (principal); Z00.00 Encounter for general adult medical examination without abnormal findings; F17.200 Nicotine dependence, unspecified, uncomplicated; X58.XXXA Exposure to other specified factors, initial encounter; Y93.89 Activity, other specified; Y92.89 Other specified places as the place of occurrence of the external cause; Y99.8 Other external cause status
CPT/HCPCS: 99281

== ENCOUNTER 2018-02-17 13:12 | Emergency (ER) | payer MEDICAID ==
[~2018-02-17] VITALS: Ht 170.2 cm; Wt 84.0 kg
[2018-02-17] MEDS ORDERED: PLEASE ENTER HEIGHT AND WEIGHT MC SCH (13:30)
[2018-02-17] MEDS ORDERED: SODIUM CHLORIDE FLUSH 10ML SYR IVF ONE (13:30)
[2018-02-17] MEDS ORDERED: SODIUM CHLORIDE 0.9% 1,000ML IVBOLUS ONE (13:30)
[2018-02-17 13:56] LABS: BASOPHILS # (AUTO) 0.02 x10^3/uL (0-0.1); BASOPHILS % (AUTO) 0 % (0-1); EOSINOPHILS # (AUTO) 0.13 x10^3/uL (0-0.4); EOSINOPHILS % (AUTO) 2 % (1-7); LYMPHOCYTES % (AUTO) 30 % (22-44); MD NO; MEAN CORPUSCULAR HEMOGLOBIN 33.6 pg (27.0-34.8); MEAN CORPUSCULAR HGB CONC 33.9 g/dL (32.4-35.8); MEAN CORPUSCULAR VOLUME 99.3 fL (80-100); MEAN PLATELET VOLUME 7.9 fL (7.4-10.4); MONOCYTES # (AUTO) 0.53 x10^3/uL (0.2-0.8); MONOCYTES % (AUTO) 8 % (2-9); NEUTROPHILS # (AUTO) 3.92 x10^3/uL (1.8-6.8); NEUTROPHILS % (AUTO) 59 % (42-75); PLATELET COUNT 150 x10^3/uL (130-400); RED BLOOD COUNT 4.22 x10^6/uL (3.82-5.3); RED CELL DISTRIBUTION WIDTH 15.6 % (9.6-15.2)
[2018-02-17 13:57] LABS: ALBUMIN 3.6 g/dL (3.4-5.0); ANION GAP 13 mmol/L (5-15); CALCIUM 8.9 mg/dL (8.5-10.1); CHLORIDE 107 mmol/L (98-107); CREATININE 0.69 mg/dL (0.55-1.02)
[2018-02-17 17:21] LABS: MICROSCOPIC NOT IND
[2018-02-17 17:23] LABS: CULTURE INDICATED? YES
[2018-02-17 18:39] VITALS: BP 121/71
[2018-02-17] MEDS ORDERED: ALPR1TAB2 PO (22:28)
== END 2018-02-17 18:42 | disposition home or self-care (01) ==
LOC: ED 13:59
DX: F10.120 Alcohol abuse with intoxication, uncomplicated (principal); R82.99 Other abnormal findings in urine; J44.9 Chronic obstructive pulmonary disease, unspecified; Z88.1 Allergy status to other antibiotic agents; Z88.8 Allergy status to other drugs, medicaments and biological substances
CPT/HCPCS: 36415; 74021; 80048; 81003; 82040; 85025; 87086; 99285; J7030

== ENCOUNTER 2018-02-17 22:06 | Emergency (ER) | payer MEDICAID ==
[~2018-02-17] VITALS: Ht 170.2 cm; Wt 70.0 kg
[2018-02-17] MEDS ORDERED: ALPR1TAB2 PO (22:28)
[2018-02-17] MEDS ORDERED: SODIUM CHLORIDE FLUSH 10ML SYR IVF ONE (22:30)
[2018-02-17] MEDS ORDERED: SODIUM CHLORIDE 0.9% 1,000ML IVBOLUS ONE (22:30)
[2018-02-17 22:49] LABS: BASOPHILS # (AUTO) 0.03 x10^3/uL (0-0.1); BASOPHILS % (AUTO) 1 % (0-1); EOSINOPHILS # (AUTO) 0.18 x10^3/uL (0-0.4); EOSINOPHILS % (AUTO) 3 % (1-7); LYMPHOCYTES # (AUTO) 2.31 x10^3/uL (1-3.4); LYMPHOCYTES % (AUTO) 36 % (22-44); MD NO; MEAN CORPUSCULAR HGB CONC 33.6 g/dL (32.4-35.8); MEAN CORPUSCULAR VOLUME 98.3 fL (80-100); MEAN PLATELET VOLUME 7.8 fL (7.4-10.4); MONOCYTES # (AUTO) 0.59 x10^3/uL (0.2-0.8); MONOCYTES % (AUTO) 9 % (2-9); NEUTROPHILS # (AUTO) 3.39 x10^3/uL (1.8-6.8); NEUTROPHILS % (AUTO) 52 % (42-75); PLATELET COUNT 158 x10^3/uL (130-400); RED CELL DISTRIBUTION WIDTH 15.7 % (9.6-15.2)
[2018-02-17 22:51] LABS: ANION GAP 12 mmol/L (5-15); CALCIUM 8.5 mg/dL (8.5-10.1); CHLORIDE 109 mmol/L (98-107); CREATININE 0.61 mg/dL (0.55-1.02)
[2018-02-17 22:52] LABS: ALBUMIN 3.5 g/dL (3.4-5.0)
[2018-02-18 00:49] VITALS: BP 116/90
== END 2018-02-18 01:17 | disposition home or self-care (01) ==
LOC: ED 22:32
DX: G43.909 Migraine, unspecified, not intractable, without status migrainosus (principal); F10.220 Alcohol dependence with intoxication, uncomplicated; F17.200 Nicotine dependence, unspecified, uncomplicated; J44.9 Chronic obstructive pulmonary disease, unspecified; Z88.1 Allergy status to other antibiotic agents; Z88.8 Allergy status to other drugs, medicaments and biological substances
CPT/HCPCS: 36415; 80048; 82040; 85025; 93005; 99285; J7030

== ENCOUNTER 2018-03-08 16:31 | Inpatient (IN) | payer MEDICAID ==
[~2018-03-08] VITALS: Ht 170.2 cm; Wt 82.4 kg
[2018-03-08] MEDS ORDERED: ONDANSETRON ODT 4 MG ONE (16:52)
[2018-03-08] MEDS ORDERED: ONDANSETRON ODT 4 MG PO ONE (17:00)
[2018-03-08] MEDS ORDERED: THIAMINE 100 MG in SODIUM CHLORIDE 0.9% 50 ML IVPB ONE (17:00)
[2018-03-08] MEDS ORDERED: SODIUM CHLORIDE 0.9% 1,000ML IVBOLUS ONE (17:00)
[2018-03-08 17:16] LABS: BASOPHILS # (AUTO) 0.02 x10^3/uL (0-0.1); BASOPHILS % (AUTO) 0 % (0-1); EOSINOPHILS # (AUTO) 0.21 x10^3/uL (0-0.4); EOSINOPHILS % (AUTO) 4 % (1-7); LYMPHOCYTES # (AUTO) 1.92 x10^3/uL (1-3.4); LYMPHOCYTES % (AUTO) 36 % (22-44); MD NO; MEAN CORPUSCULAR HEMOGLOBIN 34.1 pg (27.0-34.8); MEAN CORPUSCULAR HGB CONC 34.3 g/dL (32.4-35.8); MEAN CORPUSCULAR VOLUME 99.4 fL (80-100); MEAN PLATELET VOLUME 6.8 fL (7.4-10.4); MONOCYTES # (AUTO) 0.39 x10^3/uL (0.2-0.8); MONOCYTES % (AUTO) 7 % (2-9); NEUTROPHILS # (AUTO) 2.87 x10^3/uL (1.8-6.8); NEUTROPHILS % (AUTO) 53 % (42-75); PLATELET COUNT 114 x10^3/uL (130-400); RED BLOOD COUNT 4.29 x10^6/uL (3.82-5.3); RED CELL DISTRIBUTION WIDTH 16.8 % (9.6-15.2)
[2018-03-08 17:20] LABS: ALANINE AMINOTRANSFERASE 64 U/L (12-78); ALBUMIN 3.2 g/dL (3.4-5.0); ANION GAP 14 mmol/L (5-15); CALCIUM 8.2 mg/dL (8.5-10.1); CHLORIDE 101 mmol/L (98-107)
[2018-03-08 17:23] LABS: ALKALINE PHOSPHATASE 128 U/L (45-117); BILIRUBIN,TOTAL 0.8 mg/dL (0.2-1.0); CREATININE 0.61 mg/dL (0.55-1.02); TOTAL PROTEIN 7.1 g/dL (6.4-8.2)
[2018-03-08] MEDS ORDERED: POTASSIUM CHLORIDE 20 MEQ TAB.ER.PRT ONE (18:53)
[2018-03-08] MEDS ORDERED: POTASSIUM CHLORIDE 20 MEQ TAB.ER.PRT PO ONE ×2 (19:00→23:30)
[2018-03-08] MEDS ORDERED: OMNIPAQUE 350 MG/ML, 100ML BOTTLE ONE (20:59)
[2018-03-08] MEDS ORDERED: CEFTRIAXONE 1,000 MG IV ONE (21:30)
[2018-03-08] MEDS ORDERED: AZITHROMYCIN 500 MG TABLET PO ONE (21:30)
[2018-03-08] MEDS ORDERED: AZITHROMYCIN 500 MG TABLET ONE (21:51)
[2018-03-08] MEDS ORDERED: CEFTRIAXONE PMX 1GM/50ML 50 ML ONE (21:51)
[2018-03-08] MEDS ORDERED: CEFTRIAXONE 1,000 MG in SODIUM CHLORIDE 0.9% 50 ML IVPB ONE (22:00)
[2018-03-08 22:06] LABS: TROPONIN I < 0.015 ng/mL (0.000-0.045)
[2018-03-08] MEDS ORDERED: DOCUSATE 100 MG CAPSULE PO PRN (23:00)
[2018-03-08] MEDS ORDERED: ONDANSETRON 2MG/ML, 2ML IVPush PRN (23:00)
[2018-03-08] MEDS ORDERED: POLYETHYLENE GLYCOL 17 GM PACKET PO PRN (23:00)
[2018-03-08] MEDS ORDERED: hydrALAzine 20 MG/ML, 1ML IVPush PRN (23:00)
[2018-03-08] MEDS ORDERED: BISACODYL 10 MG SUPP PR PRN (23:00)
[2018-03-08] MEDS ORDERED: LABETALOL 5MG/ML, 20ML IVPush PRN (23:00)
[2018-03-08] MEDS ORDERED: LORazepam 1MG TABLET PO SCH (23:00)
[2018-03-08] MEDS: NS + 20MEQ KCL 1,000 ML IV SCH (23:17)
[2018-03-08] MEDS: ENOXAPARIN 40 MG/0.4 ML SQ SCH (23:19)
[2018-03-08] MEDS ORDERED: LORazepam 2 MG/ML, 1ML IV PRN (23:45)
[2018-03-09] VITALS (7 sets, daily range): BP systolic 108–118; BP diastolic 76–84
[2018-03-09] MEDS: ONDANSETRON ODT 4 MG PO PRN ×4 (00:02→16:03)
[2018-03-09] MEDS: LORazepam 1MG TABLET PO PRN ×5 (00:07→22:05)
[2018-03-09] MEDS: AMPICILLIN/SULBACTAM 1,500 MG in SODIUM CHLORIDE 0.9% 50 ML IV SCH ×4 (00:59→18:34)
[2018-03-09 05:58] LABS: AMPHETAMINE SCREEN, URINE Negative (Negative); BARBITURATE SCREEN, URINE Negative (Negative); BENZODIAZEPINE SCREEN, URINE Positive (Negative); CANNABINOID SCREEN, URINE Negative (Negative); COCAINE SCREEN, URINE Negative (Negative); METHADONE SCREEN, URINE Negative (Negative); OPIATE SCREEN, URINE Negative (Negative)
[2018-03-09 06:11] LABS: ALBUMIN 2.8 g/dL (3.4-5.0); ANION GAP 12 mmol/L (5-15); CHLORIDE 102 mmol/L (98-107)
[2018-03-09 06:16] LABS: ALANINE AMINOTRANSFERASE 53 U/L (12-78); ALKALINE PHOSPHATASE 113 U/L (45-117); BILIRUBIN,TOTAL 0.6 mg/dL (0.2-1.0); CREATININE 0.52 mg/dL (0.55-1.02)
[2018-03-09 06:23] LABS: MEAN CORPUSCULAR HEMOGLOBIN 33.7 pg (27.0-34.8); MEAN CORPUSCULAR HGB CONC 34.2 g/dL (32.4-35.8); MEAN CORPUSCULAR VOLUME 98.5 fL (80-100); RED BLOOD COUNT 3.63 x10^6/uL (3.82-5.3)
[2018-03-09 06:44] LABS: BASOPHILS # (AUTO) 0.02 x10^3/uL (0-0.1); BASOPHILS % (AUTO) 1 % (0-1); EOSINOPHILS # (AUTO) 0.21 x10^3/uL (0-0.4); EOSINOPHILS % (AUTO) 5 % (1-7); LYMPHOCYTES # (AUTO) 1.04 x10^3/uL (1-3.4); LYMPHOCYTES % (AUTO) 24 % (22-44); MD SCAN; MEAN PLATELET VOLUME 6.7 fL (7.4-10.4); MONOCYTES # (AUTO) 0.27 x10^3/uL (0.2-0.8); MONOCYTES % (AUTO) 6 % (2-9); NEUTROPHILS # (AUTO) 2.73 x10^3/uL (1.8-6.8); NEUTROPHILS % (AUTO) 64 % (42-75); PLATELET COUNT 72 x10^3/uL (130-400)
[2018-03-09] MEDS: AZITHROMYCIN 250 MG TABLET PO SCH (08:14)
[2018-03-09] MEDS: FAMOTIDINE 20 MG TABLET PO SCH ×2 (08:14→22:05)
[2018-03-09] MEDS: THIAMINE 100MG TABLET PO SCH (08:14)
[2018-03-09] MEDS: FOLIC ACID 1 MG TABLET PO SCH (08:14)
[2018-03-09 08:36] LABS: INTERNATIONAL NORMALIZED RATIO 1.13 (0.93-1.1); PROTHROMBIN TIME 11.6 Seconds (9.6-11.5)
[2018-03-09] MEDS ORDERED: AZITHROMYCIN 500 MG TABLET PO SCH (09:00)
[2018-03-09] MEDS ORDERED: CEFTRIAXONE 1,000 MG IM SCH (09:00)
[2018-03-09] MEDS: NS + 20MEQ KCL 1,000 ML IV SCH ×2 (09:40→22:04)
[2018-03-09 18:04] LABS: CULTURE INDICATED? YES; MICROSCOPIC INDICATED
[2018-03-09] MEDS: PROMETHAZINE 25MG TABLET PO PRN (22:05)
[2018-03-09] MEDS: NITROFURANTOIN (MACROBID) 100 MG CAPSULE PO SCH (22:05)
[2018-03-09] MEDS: ENOXAPARIN 40 MG/0.4 ML SQ SCH (22:10)
[2018-03-09] MEDS ORDERED: LORazepam 1MG TABLET PO SCH (23:00)
[2018-03-10] MEDS: AMPICILLIN/SULBACTAM 1,500 MG in SODIUM CHLORIDE 0.9% 50 ML IV SCH ×2 (00:52→07:44)
[2018-03-10] MEDS: LORazepam 1MG TABLET PO PRN ×5 (04:08→23:45)
[2018-03-10] MEDS: PROMETHAZINE 25MG TABLET PO PRN (04:08)
[2018-03-10] MEDS ORDERED: METOCLOPRAMIDE 5 MG/ML, 2ML IVPush PRN (07:00)
[2018-03-10 07:10] VITALS: BP 120/87
[2018-03-10 07:25] LABS: ALBUMIN 2.7 g/dL (3.4-5.0); ANION GAP 7 mmol/L (5-15); CALCIUM 8.1 mg/dL (8.5-10.1); CHLORIDE 107 mmol/L (98-107)
[2018-03-10 07:29] LABS: ALANINE AMINOTRANSFERASE 45 U/L (12-78); ALKALINE PHOSPHATASE 117 U/L (45-117); CREATININE 0.57 mg/dL (0.55-1.02); TOTAL PROTEIN 5.6 g/dL (6.4-8.2)
[2018-03-10] MEDS: NITROFURANTOIN (MACROBID) 100 MG CAPSULE PO SCH ×2 (08:06→21:32)
[2018-03-10] MEDS: FOLIC ACID 1 MG TABLET PO SCH (08:06)
[2018-03-10] MEDS: FAMOTIDINE 20 MG TABLET PO SCH ×2 (08:07→21:32)
[2018-03-10] MEDS: AZITHROMYCIN 250 MG TABLET PO SCH (08:07)
[2018-03-10] MEDS: THIAMINE 100MG TABLET PO SCH (09:37)
[2018-03-10] MEDS: NS + 20MEQ KCL 1,000 ML IV SCH ×2 (09:38→23:45)
[2018-03-10] MEDS ORDERED: MAGNESIUM SULFATE PMX 2GM/50ML 50 ML IV ONE (10:00)
[2018-03-10] MEDS ORDERED: HEPATITIS B VACCINE/PF 20MCG/ML INJ IM-VACC ONE (13:00)
[2018-03-10] MEDS ORDERED: HEPATITIS A VACCINE 1,440 UNITS/ML IM-VACC ONE (13:00)
[2018-03-10 13:50] VITALS: BP 121/87
[2018-03-10] MEDS: SERTRALINE 50MG TABLET PO SCH (14:28)
[2018-03-10 19:23] VITALS: BP 127/88
[2018-03-10] MEDS: ENOXAPARIN 40 MG/0.4 ML SQ SCH (21:33)
[2018-03-10] MEDS ORDERED: LORazepam 1MG TABLET PO SCH (23:00)
[2018-03-11 02:33] VITALS: BP 128/78
[2018-03-11] MEDS: LORazepam 1MG TABLET PO PRN ×4 (04:58→21:00)
[2018-03-11 06:15] LABS: ANION GAP 7 mmol/L (5-15); CHLORIDE 106 mmol/L (98-107)
[2018-03-11 06:16] LABS: CREATININE 0.58 mg/dL (0.55-1.02)
[2018-03-11] MEDS ORDERED: MAGNESIUM SULF. PMX 20GM/500ML 500 ML IV PRN (07:00)
[2018-03-11] MEDS: ONDANSETRON ODT 4 MG PO PRN ×3 (07:24→20:59)
[2018-03-11] MEDS: FOLIC ACID 1 MG TABLET PO SCH (08:49)
[2018-03-11] MEDS: NITROFURANTOIN (MACROBID) 100 MG CAPSULE PO SCH ×2 (08:49→20:59)
[2018-03-11] MEDS: SERTRALINE 50MG TABLET PO SCH (08:49)
[2018-03-11] MEDS: FAMOTIDINE 20 MG TABLET PO SCH ×2 (08:49→20:59)
[2018-03-11] MEDS: THIAMINE 100MG TABLET PO SCH (08:49)
[2018-03-11 09:36] VITALS: BP 132/91
[2018-03-11] MEDS: NS + 20MEQ KCL 1,000 ML IV SCH (10:44)
[2018-03-11] MEDS ORDERED: MAGNESIUM SULFATE PMX 2GM/50ML 50 ML IV ONE (11:30)
[2018-03-11 13:42] VITALS: BP 135/96
[2018-03-11] MEDS ORDERED: LOPERAMIDE 2 MG CAPSULE PO PRN (14:00)
[2018-03-11] MEDS ORDERED: PHENAZOPYRIDINE 100 MG TABLET PO PRN (14:30)
[2018-03-11 21:03] VITALS: BP 125/88
[2018-03-11] MEDS ORDERED: LORazepam 1MG TABLET PO SCH (23:00)
[2018-03-11] MEDS: ENOXAPARIN 40 MG/0.4 ML SQ SCH (23:00)
[2018-03-12] MEDS: NS + 20MEQ KCL 1,000 ML IV SCH (00:36)
[2018-03-12 00:59] VITALS: BP 132/90
[2018-03-12] MEDS: LORazepam 1MG TABLET PO PRN ×2 (01:21→08:27)
[2018-03-12 06:31] LABS: ANION GAP 7 mmol/L (5-15); CALCIUM 8.4 mg/dL (8.5-10.1); CHLORIDE 107 mmol/L (98-107)
[2018-03-12 06:33] LABS: CREATININE 0.47 mg/dL (0.55-1.02)
[2018-03-12 07:06] VITALS: BP 126/84
[2018-03-12] MEDS: ONDANSETRON ODT 4 MG PO PRN ×2 (07:33→15:36)
[2018-03-12] MEDS: NITROFURANTOIN (MACROBID) 100 MG CAPSULE PO SCH ×2 (08:27→20:21)
[2018-03-12] MEDS: FOLIC ACID 1 MG TABLET PO SCH (08:27)
[2018-03-12] MEDS: FAMOTIDINE 20 MG TABLET PO SCH ×2 (08:27→20:21)
[2018-03-12] MEDS: THIAMINE 100MG TABLET PO SCH (08:27)
[2018-03-12] MEDS: SERTRALINE 50MG TABLET PO SCH (08:27)
[2018-03-12] MEDS ORDERED: MAGNESIUM SULFATE PMX 2GM/50ML 50 ML IV ONE (08:30)
[2018-03-12 14:25] VITALS: BP 118/83
[2018-03-12] MEDS: IBUPROFEN 200 MG TABLET PO PRN (18:26)
[2018-03-12 20:15] VITALS: BP 130/89
[2018-03-12] MEDS ORDERED: DIPHENHYDRAMINE 25 MG CAPSULE PO ONE (20:30)
[2018-03-12] MEDS: ENOXAPARIN 40 MG/0.4 ML SQ SCH (23:40)
[2018-03-13 02:55] VITALS: BP 137/87
[2018-03-13 06:52] VITALS: BP 132/93
[2018-03-13 08:02] LABS: ALANINE AMINOTRANSFERASE 81 U/L (12-78); ALBUMIN 3.1 g/dL (3.4-5.0); ANION GAP 6 mmol/L (5-15); CHLORIDE 106 mmol/L (98-107); CREATININE 0.57 mg/dL (0.55-1.02)
[2018-03-13 08:04] LABS: ALKALINE PHOSPHATASE 130 U/L (45-117); BILIRUBIN,TOTAL 1.2 mg/dL (0.2-1.0); TOTAL PROTEIN 6.8 g/dL (6.4-8.2)
[2018-03-13] MEDS: SERTRALINE 50MG TABLET PO SCH (08:19)
[2018-03-13] MEDS: FAMOTIDINE 20 MG TABLET PO SCH ×2 (08:19→21:15)
[2018-03-13] MEDS: NITROFURANTOIN (MACROBID) 100 MG CAPSULE PO SCH ×2 (08:19→21:17)
[2018-03-13] MEDS: THIAMINE 100MG TABLET PO SCH (08:20)
[2018-03-13] MEDS: FOLIC ACID 1 MG TABLET PO SCH (08:20)
[2018-03-13] MEDS: IBUPROFEN 200 MG TABLET PO PRN (08:22)
[2018-03-13] MEDS: ONDANSETRON ODT 4 MG PO PRN ×2 (08:22→23:54)
[2018-03-13 12:39] VITALS: BP 122/87
[2018-03-13 20:46] VITALS: BP 122/86
[2018-03-13] MEDS ORDERED: MELATONIN 5 MG TABLET PO SCH (21:00)
[2018-03-13] MEDS: ENOXAPARIN 40 MG/0.4 ML SQ SCH (23:54)
[2018-03-14] MEDS: IBUPROFEN 200 MG TABLET PO PRN ×2 (00:02→09:22)
[2018-03-14 01:21] VITALS: BP 141/99
[2018-03-14 06:45] VITALS: BP 117/79
[2018-03-14] MEDS: SERTRALINE 50MG TABLET PO SCH (09:21)
[2018-03-14] MEDS: THIAMINE 100MG TABLET PO SCH (09:21)
[2018-03-14] MEDS: FOLIC ACID 1 MG TABLET PO SCH (09:22)
[2018-03-14] MEDS: ONDANSETRON ODT 4 MG PO PRN (09:22)
[2018-03-14] MEDS: FAMOTIDINE 20 MG TABLET PO SCH (09:22)
[2018-03-14] MEDS: NITROFURANTOIN (MACROBID) 100 MG CAPSULE PO SCH (09:22)
[2018-03-14] MEDS ORDERED: FAMO20TA7 PO (12:09)
[2018-03-14] MEDS ORDERED: THIA100T67 PO (12:09)
[2018-03-14] MEDS ORDERED: SERT50TA5 PO (12:09)
[2018-03-14] MEDS ORDERED: NALT50TA PO (12:09)
[2018-03-14] MEDS ORDERED: MELA5TAB19 PO (12:09)
[2018-03-14 12:49] VITALS: BP 129/95
== END 2018-03-14 13:12 | disposition home or self-care (01) | DRG 190 ==
LOC: ED 17:01 → EDIP 22:33 → 3NE 22:45 → 4EST 23:43 → DCLOUNGE 03-14 13:02
PROVIDERS: ADMIT Family Medicine; ATTEND Family Medicine
PROC: HZ2ZZZZ Detoxification Services for Substance Abuse Treatment (ICD-10-PCS; principal; 2018-03-08)
DX: J44.0 Chronic obstructive pulmonary disease with (acute) lower respiratory infection (principal); J18.9 Pneumonia, unspecified organism; N39.0 Urinary tract infection, site not specified; K76.6 Portal hypertension; F10.239 Alcohol dependence with withdrawal, unspecified; F17.210 Nicotine dependence, cigarettes, uncomplicated; F10.220 Alcohol dependence with intoxication, uncomplicated; G47.00 Insomnia, unspecified; F43.10 Post-traumatic stress disorder, unspecified; J44.9 Chronic obstructive pulmonary disease, unspecified; E83.42 Hypomagnesemia; F41.1 Generalized anxiety disorder; D69.6 Thrombocytopenia, unspecified; F32.9 Major depressive disorder, single episode, unspecified; G43.909 Migraine, unspecified, not intractable, without status migrainosus; M19.90 Unspecified osteoarthritis, unspecified site; R00.0 Tachycardia, unspecified; E87.6 Hypokalemia; F10.229 Alcohol dependence with intoxication, unspecified; R16.2 Hepatomegaly with splenomegaly, not elsewhere classified; K29.00 Acute gastritis without bleeding; K29.20 Alcoholic gastritis without bleeding; R09.02 Hypoxemia; Z82.49 Family history of ischemic heart disease and other diseases of the circulatory system; Z59.0 Homelessness; Z80.3 Family history of malignant neoplasm of breast; Z88.5 Allergy status to narcotic agent; Z88.8 Allergy status to other drugs, medicaments and biological substances
CPT/HCPCS: 36415; 90632; 99285; Q0169; 71045; 71275; 76705; 80048; 80053; 80074; 80307; 81001; 82140; 82274; 83690; 83735; 83880; 84100; 84134; 84484; 85025; 85610; 85730; 87040; 87086; 90746; 93005; 96361; 96365; G0378; J0696; J1650; J3411; J3480; Q0162; Q9967; J0295; J3475; J7030; Q0163

== ENCOUNTER 2019-02-21 10:18 | Emergency (ER) | payer MEDICAID ==
[~2019-02-21] VITALS: Ht 167.6 cm; Wt 80.0 kg
[2019-02-21 11:56] VITALS: BP 123/52
== END 2019-02-21 13:20 | disposition home or self-care (01) ==
LOC: ED 11:02
DX: F10.220 Alcohol dependence with intoxication, uncomplicated (principal); R07.89 Other chest pain; R51 Headache; J44.9 Chronic obstructive pulmonary disease, unspecified; F41.1 Generalized anxiety disorder; J32.9 Chronic sinusitis, unspecified; Z90.89 Acquired absence of other organs; Z88.6 Allergy status to analgesic agent; Z88.9 Allergy status to unspecified drugs, medicaments and biological substances; Z88.8 Allergy status to other drugs, medicaments and biological substances
CPT/HCPCS: 36415; 70450; 80053; 80307; 84484; 85025; 93005; 96374; 96375; 99284; J2060; J2765; J7030

== ENCOUNTER 2019-05-07 14:20 | Emergency (ER) | payer MEDICAID ==
[~2019-05-07] VITALS: Ht 170.2 cm; Wt 83.5 kg
[~2019-05-07 14:20] MED LIST changes: +FAMO20TA7 PO; +MELA5TAB14 PO; -MULT-224 PO; +MULT-642 PO; +NALT50TA PO; +SERT50TA28 PO; +THIA100T67 PO; +TRAZ150T62 PO
[2019-05-07 14:22] VITALS: BP 122/88
--- NOTE | 2019-05-07 15:15 | NUR ---
PT TRANSPORTED TO ROOM 9 VIA WC FROM Jesse CRANE PLACED IN TRIAGE.
--- NOTE | 2019-05-07 15:21 | NUR ---
report to lee Dewitt spine precautions in place .
--- NOTE | 2019-05-07 15:25 | NUR ---
RECEIVED REPORT AND CARE FROM MEHNAZ LORA. A&OX4. PT SUPINE WITH C-SPINE PRECAUTIONS AND C-COLLAR IN PLACE. CMS AND NEURO INTACT. NAD NOTED. AWAITING EVAL BY WESTLEY MACDONALD. CALL LIGHT IN REACH. FALL PRECAUTIONS IN PLACE.
[2019-05-07] MEDS ORDERED: OXYcodone/APAP 5/325MG TABLET PO ONE (16:00)
[2019-05-07] MEDS ORDERED: OXYcodone/APAP 5/325MG TABLET ONE (16:32)
--- NOTE | 2019-05-07 16:35 | NUR ---
PT REQUESTING TO USE RESTROOM, PER WESTLEY MACDONALD WITH C-SPINE PRECAUTIONS, BEDPAN OFFERED TO PT. CT STAFF AT BEDSIDE TO TAKE PT. PT GOT OUT OF BED AND AMBULATED WITH STEADY GAIT TO RESTROOM WITH C-COLLAR ON AGAINST THIS RN, CT STAFF AND WESTLEY MACDONALD INSTRUCTION. WESTLEY MACDONALD AT BEDSIDE AWARE OF PT BEHAVIOR. PT BACK TO BED. TO MEDICATE PER REQUEST AND MD ORDER FOR PAIN. NEURO AND CMS INTACT. FALL PRECAUTIONS IN PLACE.
--- NOTE | 2019-05-07 16:35 | NUR ---
C-COLLAR REMAINS IN PLACE. PT SUPINE IN C-SPINE PRECAUTIONS. AWAITING CT.
--- NOTE | 2019-05-07 16:49 | NUR ---
CT CALLED AND NOTIFIED PT READY FOR EXAM
--- NOTE | 2019-05-07 17:05 | NUR ---
PT IN CT
--- NOTE | 2019-05-07 17:45 | NUR ---
PT BACK FROM CT. NAD NOTED. RESP REGULAR AND UNLABORED.CALL LIGHT IN REACH. AWAITING RESULTS AND THEN XRAY
--- NOTE | 2019-05-07 18:03 | NUR ---
REPORT AND CARE TO PILLO LORA AT THIS TIME.
--- NOTE | 2019-05-07 18:34 | NUR ---
Patient/Caregiver given discharge instructions and they have confirmed that they understand the instructions. Patient ambulatory with steady gait.
== END 2019-05-07 18:36 | disposition home or self-care (01) ==
LOC: ED 18:15
DX: S16.1XXA Strain of muscle, fascia and tendon at neck level, initial encounter (principal); S00.83XA Contusion of other part of head, initial encounter; S20.212A Contusion of left front wall of thorax, initial encounter; S20.211A Contusion of right front wall of thorax, initial encounter; G43.909 Migraine, unspecified, not intractable, without status migrainosus; J44.9 Chronic obstructive pulmonary disease, unspecified; F17.210 Nicotine dependence, cigarettes, uncomplicated; W10.9XXA Fall (on) (from) unspecified stairs and steps, initial encounter; Y93.89 Activity, other specified; Y92.099 Unspecified place in other non-institutional residence as the place of occurrence of the external cause; Y99.8 Other external cause status
CPT/HCPCS: 70450; 71045; 72125; 99284

== ENCOUNTER 2019-05-15 09:46 | Emergency (ER) | payer MEDICAID ==
[~2019-05-15] VITALS: Ht 170.2 cm; Wt 92.0 kg
[~2019-05-15 09:46] MED LIST changes: +AZIT500T10 PO; -AZIT500T5 PO
--- NOTE | 2019-05-15 10:06 | NUR ---
PT TO CT
--- NOTE | 2019-05-15 11:15 | NUR ---
LAB UNABLE TO OBTAIN BLOOD PRIOR. SO DESIGNER/WRITER PLACED RIGHT ARM PIV FROM WHICH LABS WERE DRAWN PATIENT THEN STRAIGHT CATHERIZED FOR SAMPLE BY EMILY WIGGINS RN, WITH DESIGNER/WRITER METAL CANS SUPERVISOR PATIENT REMAINS WITH SLURRED SPEECH, DORWSY, REQUIRING 6-7LITER OXYMASK END TIDAL 45-53 ALSO NOTED TO HAVE PRODUCTIVE COUGH WITH WHITISH/YELLOW SPUTUM WHILE CHANGING PATIENT FOR STRAIGHT CATH-PATIENT NOTED TO BE INCONTINENT (POST-ICTAL?) PROVIDER MADE AWARE OF ALL OF THE ABOVE
--- NOTE | 2019-05-15 11:23 | NUR ---
SEIZURE PRECAUTION PLACED PROVIDER ORDER UDS PATIENT POX 97% ON 7.5L OXYMASK PER PROVIDER PLAN TO DEFER IVF, WAIT FOR LABS AND MONITOR PATIENT SHE METABOLIZES ASSUMED INTOXICANT OR RECOVER FROM SEIZURE
[2019-05-15 11:26] LABS: BASOPHILS # (AUTO) 0.02 x10^3/uL (0-0.1); BASOPHILS % (AUTO) 0 % (0-1); EOSINOPHILS # (AUTO) 0.09 x10^3/uL (0-0.4); EOSINOPHILS % (AUTO) 2 % (1-7); LYMPHOCYTES # (AUTO) 1.83 x10^3/uL (1-3.4); LYMPHOCYTES % (AUTO) 32 % (22-44); MD NO; MEAN CORPUSCULAR HEMOGLOBIN 33.3 pg (27.0-34.8); MEAN CORPUSCULAR HGB CONC 32.8 g/dL (32.4-35.8); MEAN CORPUSCULAR VOLUME 101.7 fL (80-100); MEAN PLATELET VOLUME 6.3 fL (7.4-10.4); MONOCYTES # (AUTO) 0.41 x10^3/uL (0.2-0.8); MONOCYTES % (AUTO) 7 % (2-9); NEUTROPHILS # (AUTO) 3.43 x10^3/uL (1.8-6.8); NEUTROPHILS % (AUTO) 59 % (42-75); PLATELET COUNT 202 x10^3/uL (130-400); RED BLOOD COUNT 4.94 x10^6/uL (3.82-5.3)
[2019-05-15 11:38] LABS: ALANINE AMINOTRANSFERASE 34 U/L (12-78); ALBUMIN 4.4 g/dL (3.4-5.0); ANION GAP 7 mmol/L (5-15); CALCIUM 8.7 mg/dL (8.5-10.1); CHLORIDE 110 mmol/L (98-107); CREATININE 0.86 mg/dL (0.55-1.02)
[2019-05-15 11:44] LABS: ALKALINE PHOSPHATASE 122 U/L (45-117); BILIRUBIN,TOTAL 0.3 mg/dL (0.2-1.0); TOTAL PROTEIN 8.5 g/dL (6.4-8.2)
--- NOTE | 2019-05-15 12:05 | NUR ---
WITH REASSESSMENT VSS ON PSYCHOLOGY INSTRUCTOR/7L OXYMASK POC REVIEWED WITH PROVIDER-TO MTF
[2019-05-15 12:24] LABS: AMPHETAMINE SCREEN, URINE Negative (Negative); BARBITURATE SCREEN, URINE Negative (Negative); BENZODIAZEPINE SCREEN, URINE Positive (Negative); CANNABINOID SCREEN, URINE Negative (Negative); COCAINE SCREEN, URINE Negative (Negative); METHADONE SCREEN, URINE Negative (Negative); OPIATE SCREEN, URINE Negative (Negative)
--- NOTE | 2019-05-15 12:43 | NUR ---
RECEIVED REPORT FROM KAYLI, ASSUMING CARE AT THIS TIME.
--- NOTE | 2019-05-15 13:00 | NUR ---
REPORT TO VITOR LORA
--- NOTE | 2019-05-15 13:16 | NUR ---
DIET TRAY ORDERED FOR PATIENT PER PROVIDER REQUEST
--- NOTE | 2019-05-15 13:54 | NUR ---
DIET TRAY DELIVERED. PT ALERT AND SITTING UP EATING. PT STATES SHE IS FEELING BETTER.
--- NOTE | 2019-05-15 14:44 | NUR ---
PT SLEEPING ON JOSE [place]. BRENDA.
--- NOTE | 2019-05-15 15:30 | NUR ---
PT LINEN AND GOWN CHANGED. PT STOOD NEXT TO BED, STATES SHE FELT A "LITTLE DIZZY, BUT NOT BAD". CONNECTED TO ALL MONITORING. SEIZURE PAD STILL IN PLACE, CALL LIGHT IN REACH.
--- NOTE | 2019-05-15 16:30 | NUR ---
PT ALERT AND CONVERSING APPROPRIATELY. NADN. CALL LIGHT IN REACH.
--- NOTE | 2019-05-15 17:30 | NUR ---
PT O2 TURNED OFF WHILE PT SLEEPING AND PT O2 LEVEL DECREASED TO 84%, O2 INCREASED BACK TO 2L. NADN
--- NOTE | 2019-05-15 18:25 | NUR ---
PT RESTING COMFORTABLY ON [place]. BRENDA. SPEAKING IN FULL SENTENCES.
--- NOTE | 2019-05-15 19:10 | NUR ---
REPORT OF PT FROM GENO ADLER AND ASSUMING CARE OF PT AT THIS TIME.
--- NOTE | 2019-05-15 19:45 | NUR ---
PT TO XRAY AT THIS TIME VIA [facility].
--- NOTE | 2019-05-15 20:14 | NUR ---
PT ASLEEP IN [facility] AT THIS TIME;
[2019-05-15] MEDS ORDERED: ACETAMINOPHEN 325 MG TABLET ONE (21:02)
--- NOTE | 2019-05-15 21:08 | NUR ---
PT MEDICATED PER SEP. PT VSS AND UPDATED IN EMR.
[2019-05-15] MEDS ORDERED: ACETAMINOPHEN 325 MG TABLET PO ONE (21:30)
[2019-05-15 22:03] VITALS: BP 132/81
--- NOTE | 2019-05-15 22:03 | NUR ---
PT D/C WITH D/C SUMMARY. ALL QUESTIONS ANSWERED. PT AMBULATES TO REGISTRATION DESK WITH STEADY GAIT FOR D[facility] WITH TAXI VOUCHER. PT DENIES ANY OTHER NEEDS PERTAINING TO THIS VISIT. PT VSS AND UPDATED IN EMR PRIOR TO D/C.
== END 2019-05-15 22:17 | disposition home or self-care (01) ==
LOC: ED 13:22
DX: S06.9X0A Unspecified intracranial injury without loss of consciousness, initial encounter (principal); F10.129 Alcohol abuse with intoxication, unspecified; J44.9 Chronic obstructive pulmonary disease, unspecified; F41.1 Generalized anxiety disorder; G40.909 Epilepsy, unspecified, not intractable, without status epilepticus; W18.30XA Fall on same level, unspecified, initial encounter; Y93.89 Activity, other specified; Y92.89 Other specified places as the place of occurrence of the external cause; Y99.8 Other external cause status
CPT/HCPCS: 36415; 70450; 70486; 71046; 80053; 80307; 85025; 93005; 99284

== ENCOUNTER 2019-07-29 11:19 | Emergency (ER) | payer MEDICAID ==
[~2019-07-29] VITALS: Ht 170.2 cm; Wt 79.5 kg
[2019-07-29 12:20] VITALS: BP 106/78
--- NOTE | 2019-07-29 12:20 | NUR ---
PT SLEEPING, BREATHING EVEN AND UNLABORED
[2019-07-29] MEDS ORDERED: NEOSPORIN OINT. PKT 1 PACKET ONE (13:01)
--- NOTE | 2019-07-29 14:09 | NUR ---
BOYFRIEND AT BEDSIDE. PT ABLE TO WALK A SHORT DISTANCE WITHOUT ASSISTANCE. BOYFRIEND/PT LIVES 2 BLOCKS AWAY. GIVEN A TAXI VOUCHER. TO DISCHARGE WINDOW VIA W/C
== END 2019-07-29 14:12 | disposition home or self-care (01) ==
LOC: ED 12:03
DX: F10.229 Alcohol dependence with intoxication, unspecified (principal); Y90.9 Presence of alcohol in blood, level not specified
CPT/HCPCS: 99283

== ENCOUNTER 2019-07-29 20:24 | Inpatient (IN) | payer MEDICAID ==
[~2019-07-29] VITALS: Ht 170.2 cm; Wt 54.6 kg
--- NOTE | 2019-07-29 20:37 | NUR ---
PT BIB EMS FROM [facility] D/T PT BEING UNABLE TO WALK. PT HAS STRONG ETOH ODOR AND REPORTS SHE DRANK "1/5TH VODKA" TODAY. PT REPORTS SHE NORMALLY DRINKS A "LITTLE LESS THAN 1/5TH" PER DAY. PT PLACED ON 3L NC TO MAINTAIN O2 SAT ABOVE 92%. PT RESTING ON GURNEY WITH EYES CLOSED. PT PLACED ON MONITORING, CALL LIGHT WITHIN REACH, ALL SAFETY MEASURES IN PLACE.
--- NOTE | 2019-07-29 20:43 | NUR ---
ERMD IN ROOM TO PATEL PT.
[2019-07-29] MEDS ORDERED: ALBUTEROL/IPRATROPIUM 2.5MG/0.5MG, 3 ML NPPB ONE (21:00)
[2019-07-29 21:17] LABS: BASOPHILS # (AUTO) 0.04 x10^3/uL (0-0.1); BASOPHILS % (AUTO) 1 % (0-1); EOSINOPHILS # (AUTO) 0.27 x10^3/uL (0-0.4); EOSINOPHILS % (AUTO) 5 % (1-7); LYMPHOCYTES # (AUTO) 1.66 x10^3/uL (1-3.4); LYMPHOCYTES % (AUTO) 28 % (22-44); MD NO; MEAN CORPUSCULAR HEMOGLOBIN 32.9 pg (27.0-34.8); MEAN CORPUSCULAR HGB CONC 33.2 g/dL (32.4-35.8); MEAN CORPUSCULAR VOLUME 99.1 fL (80-100); MEAN PLATELET VOLUME 6.6 fL (7.4-10.4); MONOCYTES # (AUTO) 0.39 x10^3/uL (0.2-0.8); MONOCYTES % (AUTO) 7 % (2-9); NEUTROPHILS # (AUTO) 3.56 x10^3/uL (1.8-6.8); NEUTROPHILS % (AUTO) 60 % (42-75); PLATELET COUNT 128 x10^3/uL (130-400); RED BLOOD COUNT 4.28 x10^6/uL (3.82-5.3); RED CELL DISTRIBUTION WIDTH 14.3 % (9.6-15.2)
[2019-07-29 21:22] LABS: ALBUMIN 3.6 g/dL (3.4-5.0); ANION GAP 9 mmol/L (5-15); CALCIUM 8.3 mg/dL (8.5-10.1); CHLORIDE 109 mmol/L (98-107)
[2019-07-29 21:26] LABS: CREATININE 0.57 mg/dL (0.55-1.02); TROPONIN I < 0.015 ng/mL (0.000-0.045)
--- NOTE | 2019-07-29 21:28 | NUR ---
PT RESTING ON [facility].MEDICATED PER SEP.
--- NOTE | 2019-07-29 22:35 | NUR ---
REPORT TO GENO PAINTING
--- NOTE | 2019-07-29 23:17 | NUR ---
REPORT TO GENO CORTES
[2019-07-29] MEDS ORDERED: PROMETHAZINE 25 MG/ML, 1ML IM PRN (23:30)
[2019-07-29] MEDS ORDERED: DEXTROSE 50%, 50ML SYRINGE IVPush PRN (23:30)
[2019-07-29] MEDS ORDERED: GLUCAGON 1 MG IM PRN (23:30)
[2019-07-29] MEDS ORDERED: POTASSIUM CHLORIDE 20 MEQ TAB.ER.PRT PO ONE (23:30)
[2019-07-29] MEDS ORDERED: DEXTROSE 4 GM TAB.CHEW PO PRN (23:30)
[2019-07-29] MEDS ORDERED: ACETAMINOPHEN 325 MG TABLET PO PRN (23:30)
[2019-07-29] MEDS ORDERED: ONDANSETRON 2MG/ML, 2ML IVPush PRN ×2 (23:30)
[2019-07-29 23:45] LABS: ALBUMIN 3.6 g/dL (3.4-5.0); BILIRUBIN, DIRECT 0.1 mg/dL (0.1-0.2)
[2019-07-29 23:48] LABS: BILIRUBIN,INDIRECT 0.2 mg/dL (0.0-2.0); BILIRUBIN,TOTAL 0.3 mg/dL (0.2-1.0); TOTAL PROTEIN 7.1 g/dL (6.4-8.2)
--- NOTE | 2019-07-29 23:53 | NUR ---
TP RN: PER DR. BRADSHAW PT. TO REMAIN IN ED UNTIL CTA RESULTED.
[2019-07-29] MEDS ORDERED: ENOXAPARIN 40 MG/0.4 ML SQ SCH (23:59)
--- NOTE | 2019-07-30 00:04 | NUR ---
NEED REQUIRED IV FOR CTA.
--- NOTE | 2019-07-30 00:08 | NUR ---
TP RN: CT AWARE NEW IV IS PLACED.
[2019-07-30 00:18] LABS: INTERNATIONAL NORMALIZED RATIO 0.98 (0.93-1.1); PROTHROMBIN TIME 10.4 Seconds (9.6-11.5)
--- NOTE | 2019-07-30 00:29 | NUR ---
TP RN: PER DR. BRADSHAW PT. TO GO TO MED TELE INSTEAD OF MED/SURG/ONC.
[2019-07-30] MEDS ORDERED: OMNIPAQUE 350 MG/ML, 100ML BOTTLE ONE (00:36)
--- NOTE | 2019-07-30 00:36 | NUR ---
REPORT GIVEN TO GENO RICE. PT BACK FROM IMAGING.
[2019-07-30] MEDS: POTASSIUM CHLORIDE 20 MEQ, MAGNESIUM SULFATE 2 GM, THIAMINE 200 MG, MVI ADULT 10 ML, FO... IV SCH ×2 (01:26→09:27)
[2019-07-30] MEDS ORDERED: HEPARIN 5,000 UNITS/ML, 1ML IV PRN (01:30)
[2019-07-30] MEDS ORDERED: HEPARIN 5,000 UNITS/ML, 1ML IV ONE ×2 (01:30→03:30)
[2019-07-30] MEDS ORDERED: HEPARIN 25,000 UNITS/500ML PMX 500 ML IV PRN ×2 (01:30→03:30)
[2019-07-30 01:55] VITALS: BP 130/74
[2019-07-30] MEDS: LORazepam 2 MG/ML, 1ML IVPush PRN ×4 (01:57→15:40)
[2019-07-30] MEDS: PIPERACILLIN/TAZO/PMX 3.375GM 50 ML IV SCH ×3 (02:01→13:52)
[2019-07-30 03:53] LABS: BASOPHILS # (AUTO) 0.01 x10^3/uL (0-0.1); BASOPHILS % (AUTO) 0 % (0-1); EOSINOPHILS # (AUTO) 0.02 x10^3/uL (0-0.4); EOSINOPHILS % (AUTO) 0 % (1-7); LYMPHOCYTES # (AUTO) 0.35 x10^3/uL (1-3.4); LYMPHOCYTES % (AUTO) 7 % (22-44); MD NO; MEAN CORPUSCULAR HEMOGLOBIN 32.8 pg (27.0-34.8); MEAN CORPUSCULAR VOLUME 99.4 fL (80-100); MONOCYTES # (AUTO) 0.04 x10^3/uL (0.2-0.8); MONOCYTES % (AUTO) 1 % (2-9); NEUTROPHILS # (AUTO) 4.53 x10^3/uL (1.8-6.8); NEUTROPHILS % (AUTO) 92 % (42-75); PLATELET COUNT 157 x10^3/uL (130-400); RED BLOOD COUNT 4.49 x10^6/uL (3.82-5.3); RED CELL DISTRIBUTION WIDTH 14.6 % (9.6-15.2)
[2019-07-30 03:55] LABS: ANION GAP 14 mmol/L (5-15); CALCIUM 8.1 mg/dL (8.5-10.1); CHLORIDE 105 mmol/L (98-107); CREATININE 0.53 mg/dL (0.55-1.02)
[2019-07-30] MEDS ORDERED: HEPARIN 25,000 UNITS/250ML PMX 250 ML IV PRN (04:23)
[2019-07-30] MEDS: HEPARIN 25,000 UNITS/250ML PMX 250 ML IV PRN (04:38)
[2019-07-30 06:58] VITALS: BP 111/80
[2019-07-30] MEDS: SODIUM CHLORIDE FLUSH 10ML SYR IVF SCH ×2 (07:27→20:42)
[2019-07-30 07:34] LABS: AMPHETAMINE SCREEN, URINE Positive (Negative); BARBITURATE SCREEN, URINE Negative (Negative); BENZODIAZEPINE SCREEN, URINE Positive (Negative); CANNABINOID SCREEN, URINE Negative (Negative); COCAINE SCREEN, URINE Negative (Negative); METHADONE SCREEN, URINE Negative (Negative); OPIATE SCREEN, URINE Negative (Negative)
[2019-07-30] MEDS: HEPARIN 5,000 UNITS/ML, 1ML IV PRN ×3 (09:43→21:19)
[2019-07-30] MEDS: SERTRALINE 100MG TABLET PO SCH (11:28)
[2019-07-30 12:03] VITALS: BP 111/78
[2019-07-30] MEDS: HYDROcodone/APAP 5/325 TABLET PO PRN ×2 (12:55→17:59)
[2019-07-30 20:32] VITALS: BP 145/94
[2019-07-30] MEDS: TRAZODONE 50MG TABLET PO PRN (20:42)
[2019-07-31 02:41] VITALS: BP 112/75
[2019-07-31 03:53] LABS: ANION GAP 3 mmol/L (5-15); CALCIUM 8.9 mg/dL (8.5-10.1); CHLORIDE 107 mmol/L (98-107); CREATININE 0.55 mg/dL (0.55-1.02)
[2019-07-31 03:59] LABS: BASOPHILS # (AUTO) 0.02 x10^3/uL (0-0.1); BASOPHILS % (AUTO) 0 % (0-1); EOSINOPHILS # (AUTO) 0.01 x10^3/uL (0-0.4); EOSINOPHILS % (AUTO) 0 % (1-7); LYMPHOCYTES # (AUTO) 0.86 x10^3/uL (1-3.4); LYMPHOCYTES % (AUTO) 12 % (22-44); MD NO; MEAN CORPUSCULAR HEMOGLOBIN 33.4 pg (27.0-34.8); MEAN CORPUSCULAR HGB CONC 33.8 g/dL (32.4-35.8); MEAN CORPUSCULAR VOLUME 98.8 fL (80-100); MEAN PLATELET VOLUME 6.9 fL (7.4-10.4); MONOCYTES # (AUTO) 0.47 x10^3/uL (0.2-0.8); MONOCYTES % (AUTO) 7 % (2-9); NEUTROPHILS # (AUTO) 5.71 x10^3/uL (1.8-6.8); NEUTROPHILS % (AUTO) 81 % (42-75); PLATELET COUNT 113 x10^3/uL (130-400); RED BLOOD COUNT 3.23 x10^6/uL (3.82-5.3); RED CELL DISTRIBUTION WIDTH 14.1 % (9.6-15.2)
[2019-07-31] MEDS: LORazepam 2 MG/ML, 1ML IVPush PRN ×2 (04:08→08:38)
[2019-07-31] MEDS: HEPARIN 5,000 UNITS/ML, 1ML IV PRN ×2 (04:08→17:40)
[2019-07-31] MEDS: HEPARIN 25,000 UNITS/250ML PMX 250 ML IV PRN (05:56)
[2019-07-31] MEDS: HYDROcodone/APAP 5/325 TABLET PO PRN ×3 (06:01→17:45)
[2019-07-31 07:10] VITALS: BP 110/74
[2019-07-31] MEDS: SERTRALINE 100MG TABLET PO SCH (08:38)
[2019-07-31] MEDS: SODIUM CHLORIDE FLUSH 10ML SYR IVF SCH ×2 (08:39→21:04)
[2019-07-31] MEDS: AMOXICILLIN/CLAV 875-125MG TABLET PO SCH ×2 (12:38→21:03)
[2019-07-31 14:13] VITALS: BP 108/64
[2019-07-31] MEDS: ALPRazolam 1MG TAB PO PRN (14:17)
[2019-07-31] MEDS ORDERED: SENNA/DOCUSATE TABLET PO PRN (15:00)
[2019-07-31] MEDS ORDERED: QUETIAPINE 25MG TABLET PO PRN (15:00)
[2019-07-31] MEDS ORDERED: PHARMACY INSTRUCTION MC PRN (15:00)
[2019-07-31 19:12] VITALS: BP 115/79
[2019-07-31] MEDS ORDERED: MELATONIN 3 MG TABLET PO SCH (21:00)
[2019-07-31] MEDS: TRAZODONE 50MG TABLET PO PRN (21:03)
[2019-07-31] MEDS: APIXABAN 5 MG TABLET PO SCH (21:03)
[2019-08-01 01:18] VITALS: BP 108/72
[2019-08-01 06:15] VITALS: BP 111/76
[2019-08-01] MEDS: HYDROcodone/APAP 5/325 TABLET PO PRN ×3 (06:41→19:34)
[2019-08-01] MEDS: SERTRALINE 100MG TABLET PO SCH (10:34)
[2019-08-01] MEDS: AMOXICILLIN/CLAV 875-125MG TABLET PO SCH ×2 (10:34→20:07)
[2019-08-01] MEDS: APIXABAN 5 MG TABLET PO SCH ×2 (10:34→20:07)
[2019-08-01] MEDS: ALPRazolam 1MG TAB PO PRN (10:35)
[2019-08-01] MEDS: SODIUM CHLORIDE FLUSH 10ML SYR IVF SCH ×2 (10:36→20:07)
[2019-08-01] MEDS ORDERED: GUAIFENESIN/COD200MG-20MG/10ML LIQUID PO PRN (11:30)
[2019-08-01 12:37] VITALS: BP 111/80
[2019-08-01] MEDS: SUCRALFATE 1 GM TABLET PO SCH ×2 (16:20→20:07)
[2019-08-01] MEDS: OMEPRAZOLE 20 MG CAPSULE.DR PO SCH (16:20)
[2019-08-01 19:34] VITALS: BP 118/81
[2019-08-01] MEDS: TRAZODONE 50MG TABLET PO PRN (20:07)
[2019-08-02 01:40] VITALS: BP 110/76
[2019-08-02] MEDS: ALPRazolam 1MG TAB PO PRN (05:21)
[2019-08-02] MEDS: OMEPRAZOLE 20 MG CAPSULE.DR PO SCH (05:21)
[2019-08-02 05:32] LABS: ANION GAP 6 mmol/L (5-15); CHLORIDE 107 mmol/L (98-107)
[2019-08-02 05:34] LABS: BASOPHILS # (AUTO) 0.02 x10^3/uL (0-0.1); BASOPHILS % (AUTO) 1 % (0-1); CREATININE 0.54 mg/dL (0.55-1.02); EOSINOPHILS % (AUTO) 6 % (1-7); LYMPHOCYTES # (AUTO) 1.21 x10^3/uL (1-3.4); LYMPHOCYTES % (AUTO) 34 % (22-44); MD NO; MEAN CORPUSCULAR HEMOGLOBIN 33.3 pg (27.0-34.8); MEAN PLATELET VOLUME 7.7 fL (7.4-10.4); MONOCYTES # (AUTO) 0.32 x10^3/uL (0.2-0.8); MONOCYTES % (AUTO) 9 % (2-9); NEUTROPHILS # (AUTO) 1.82 x10^3/uL (1.8-6.8); NEUTROPHILS % (AUTO) 51 % (42-75); PLATELET COUNT 101 x10^3/uL (130-400); RED BLOOD COUNT 3.51 x10^6/uL (3.82-5.3); RED CELL DISTRIBUTION WIDTH 13.9 % (9.6-15.2)
[2019-08-02] MEDS: SUCRALFATE 1 GM TABLET PO SCH ×2 (06:33→10:45)
[2019-08-02] MEDS: HYDROcodone/APAP 5/325 TABLET PO PRN ×2 (06:33→10:48)
[2019-08-02 07:26] VITALS: BP 117/82
[2019-08-02] MEDS: APIXABAN 5 MG TABLET PO SCH (08:12)
[2019-08-02] MEDS: SERTRALINE 100MG TABLET PO SCH (08:12)
[2019-08-02] MEDS: AMOXICILLIN/CLAV 875-125MG TABLET PO SCH (08:12)
[2019-08-02] MEDS: SODIUM CHLORIDE FLUSH 10ML SYR IVF SCH (08:12)
[2019-08-02] MEDS ORDERED: SUCR1TAB33 PO (11:06)
[2019-08-02] MEDS ORDERED: SERT100T32 PO (11:06)
[2019-08-02] MEDS ORDERED: SENN-193 PO (11:06)
[2019-08-02] MEDS ORDERED: OMEP-110 PO (11:06)
[2019-08-02] MEDS ORDERED: APIX5TAB PO (11:06)
[2019-08-02] MEDS ORDERED: HYDR-3237 PO (11:06)
[2019-08-02] MEDS ORDERED: AMOX1TAB12 PO (11:06)
== END 2019-08-02 12:30 | disposition home or self-care (01) | DRG 177 ==
LOC: ED 22:05 → EDIP 22:29 → 4EST 07-30 00:51 → DCLOUNGE 08-02 12:14
PROVIDERS: ADMIT Family Medicine; ATTEND Family Medicine
DX: J69.0 Pneumonitis due to inhalation of food and vomit (principal); I26.99 Other pulmonary embolism without acute cor pulmonale; G93.41 Metabolic encephalopathy; J96.01 Acute respiratory failure with hypoxia; D69.6 Thrombocytopenia, unspecified; E16.2 Hypoglycemia, unspecified; E87.6 Hypokalemia; F10.220 Alcohol dependence with intoxication, uncomplicated; F39 Unspecified mood [affective] disorder; I51.7 Cardiomegaly; K76.0 Fatty (change of) liver, not elsewhere classified; K80.20 Calculus of gallbladder without cholecystitis without obstruction; Z59.0 Homelessness; Z90.49 Acquired absence of other specified parts of digestive tract; G43.909 Migraine, unspecified, not intractable, without status migrainosus; G89.29 Other chronic pain
CPT/HCPCS: 36415; 99285; J7042; J7620; 71045; 71275; 80048; 80076; 80307; 82040; 82962; 83605; 83735; 84100; 84484; 85025; 85520; 85610; 93005; 93306; 94640; G0378; J1644; J2543; J3411; J3475; J3480; Q9967; J2060; J7512

== ENCOUNTER 2019-09-07 20:16 | Emergency (ER) | payer MEDICAID ==
[~2019-09-07] VITALS: Ht 170.2 cm; Wt 72.0 kg
[~2019-09-07 20:16] MED LIST changes: +AMOX1TAB12 PO; +APIX5TAB PO; +HYDR-3237 PO; +OMEP-110 PO; +SENN-193 PO; +SERT100T32 PO; +SUCR1TAB33 PO
--- NOTE | 2019-09-07 22:00 | NUR ---
REPORT RECEIVED AND CARE ASSUMED. PT SLEEPING WITH RESP EVEN AND UNLABORED. PT AWAKES EASILY TO VERBAL. PT IS ABLE TO ANSWER MOST QUESTIONS APPROPIATELY. PT DENIES MEDICAL COMPLAINTS AT THIS TIME. WILL D/C PT HOME WHEN SAFE TO DO SO. DISCUSSED FALL RISK PRECAUTIONS WITH PT, WHO VERBALIZES UNDERSTANDING. CALL LIGHT IS WITHIN REACH. SIDERAILS UP AND BED IN LOWEST POSITION. VSS.
--- NOTE | 2019-09-07 22:01 | NUR ---
REPORT GIVEN TO GENO MEDINA.
--- NOTE | 2019-09-07 23:00 | NUR ---
ATTEMPTED TO AMBULATE PT. PT IS UNSTEADY. UNSAFE TO D/C AT THIS TIME. PT IS ORIENTED X4. AWAKES EASILY. NO S/S OF ACUTE DISTRESS. VSS. WILL D/C HOME WHEN PT IS MORE SOBER. CALL LIGHT IN REACH AND FALL PRECAUTIONS REENFORCED.
--- NOTE | 2019-09-08 00:15 | NUR ---
Pt sleeping with resp even and unlabored. VSS. Call light in reach.
--- NOTE | 2019-09-08 01:15 | NUR ---
Pt up to BR with assist. Remains with unsteady gait. Unsafe to d/c home. VSS. Call light in reach. Pt aware of POC--will d/c when more sober.
--- NOTE | 2019-09-08 02:00 | NUR ---
Pt sleeping with no s/s of acute distress. VSS. Resp even and unlabored. Call light in reach.
[2019-09-08 03:15] VITALS: BP 103/68
== END 2019-09-08 03:18 | disposition home or self-care (01) ==
LOC: ED 23:14
DX: F10.229 Alcohol dependence with intoxication, unspecified (principal); Y90.0 Blood alcohol level of less than 20 mg/100 ml; J44.9 Chronic obstructive pulmonary disease, unspecified
CPT/HCPCS: 99285

== ENCOUNTER 2019-09-09 23:27 | Emergency (ER) | payer MEDICAID ==
--- NOTE | 2019-09-09 23:39 | NUR ---
53 Y/O FEMALE JANETH [facility] AFTER FALLING ASLEEP IN HER CHAIR AND FALLING TO THE GROUND STRIKING HER HEAD ON THE FLOOR. DENIES LOC. PT DENIES ETOH HOWEVER SMELLS HEAVILY OF ALCOHOL. ALERT AND ORIENTED. DENIES ANY COMPLAINTS. UNKNOWN MEDICAL HISTORY, PT NOT COOPERATIVE WITH TRIAGE QUESTIONS. PT DOES TAKE ELIQUIS. ALL MONITORING EQUIPMENT APPLIED. EKG DONE. VITALS STABLE. WILL CONTINUE TO MONITOR.
--- NOTE | 2019-09-09 23:43 | NUR ---
FSBS 95
--- NOTE | 2019-09-10 00:02 | NUR ---
PT BACK FROM CT, LAB AT BEDSIDE
[2019-09-10 00:16] LABS: BASOPHILS # (AUTO) 0.03 x10^3/uL (0-0.1); BASOPHILS % (AUTO) 1 % (0-1); EOSINOPHILS # (AUTO) 0.15 x10^3/uL (0-0.4); EOSINOPHILS % (AUTO) 3 % (1-7); LYMPHOCYTES # (AUTO) 1.79 x10^3/uL (1-3.4); LYMPHOCYTES % (AUTO) 37 % (22-44); MD NO; MEAN CORPUSCULAR HEMOGLOBIN 32.2 pg (27.0-34.8); MEAN CORPUSCULAR HGB CONC 33.6 g/dL (32.4-35.8); MEAN CORPUSCULAR VOLUME 95.9 fL (80-100); MEAN PLATELET VOLUME 6.8 fL (7.4-10.4); MONOCYTES # (AUTO) 0.47 x10^3/uL (0.2-0.8); MONOCYTES % (AUTO) 10 % (2-9); NEUTROPHILS # (AUTO) 2.35 x10^3/uL (1.8-6.8); NEUTROPHILS % (AUTO) 49 % (42-75); PLATELET COUNT 188 x10^3/uL (130-400); RED BLOOD COUNT 3.54 x10^6/uL (3.82-5.3); RED CELL DISTRIBUTION WIDTH 14.8 % (9.6-15.2)
[2019-09-10 00:26] LABS: ALANINE AMINOTRANSFERASE 22 U/L (12-78); ALBUMIN 3.2 g/dL (3.4-5.0); ANION GAP 9 mmol/L (5-15); CALCIUM 8.5 mg/dL (8.5-10.1); CHLORIDE 107 mmol/L (98-107); CREATININE 0.55 mg/dL (0.55-1.02)
--- NOTE | 2019-09-10 00:26 | NUR ---
PT ASSISTED TO RESTROOM, BACK TO BED WITHOUT DIFFICULTY
--- NOTE | 2019-09-10 00:35 | NUR ---
float rn: pt up to bathroom with sba. pt back in bed and side rails up in low locked position.
[2019-09-10 00:37] LABS: ALKALINE PHOSPHATASE 98 U/L (45-117); BILIRUBIN,TOTAL 0.3 mg/dL (0.2-1.0); TOTAL PROTEIN 6.7 g/dL (6.4-8.2)
--- NOTE | 2019-09-10 01:40 | NUR ---
PT RESTING ON GURNEY, RESPIRATIONS EVEN AND UNLABORED. AWAITING PT TO SOBER UP FOR SAFE DISCHARGE
--- NOTE | 2019-09-10 02:46 | NUR ---
PT SLEEPING, NO DISTRESS NOTED. ALL VITALS STABLE.
[2019-09-10 04:11] VITALS: BP 148/76
--- NOTE | 2019-09-10 05:50 | NUR ---
PT AWAKE, STEADY GAIT NOTED. AMBULATORY TO DISCHARGE AREA. TAXI VOUCHER PROVIDED. PT WAS LOOKING FOR HER PURSE. SHE DID NOT ARRIVE WITH ANY BELONGINGS OTHER THAN THE CLOTHING SHE WAS WEARING.
[2019-09-10] MEDS ORDERED: xarelto PO (15:31)
== END 2019-09-10 05:53 | disposition home or self-care (01) ==
LOC: ED 09-10 04:15
DX: S06.0X0A Concussion without loss of consciousness, initial encounter (principal); F10.120 Alcohol abuse with intoxication, uncomplicated; F17.210 Nicotine dependence, cigarettes, uncomplicated; J44.9 Chronic obstructive pulmonary disease, unspecified; M54.2 Cervicalgia; W01.0XXA Fall on same level from slipping, tripping and stumbling without subsequent striking against object, initial encounter; Y93.89 Activity, other specified; Y92.89 Other specified places as the place of occurrence of the external cause; Y99.8 Other external cause status
CPT/HCPCS: 36415; 70450; 72125; 80053; 80307; 83690; 85025; 93005; 99285; 99406

== ENCOUNTER 2019-09-10 19:19 | Emergency (ER) | payer MEDICAID ==
[~2019-09-10] VITALS: Ht 167.6 cm; Wt 70.0 kg
[~2019-09-10 19:19] MED LIST changes: +xarelto PO
[2019-09-10 22:14] VITALS: BP 134/74
== END 2019-09-11 00:49 | disposition home or self-care (01) ==
LOC: ED 20:19
DX: F10.129 Alcohol abuse with intoxication, unspecified (principal); J44.9 Chronic obstructive pulmonary disease, unspecified; G43.909 Migraine, unspecified, not intractable, without status migrainosus; Z90.89 Acquired absence of other organs; Y90.0 Blood alcohol level of less than 20 mg/100 ml
CPT/HCPCS: 99283

== ENCOUNTER 2019-10-03 14:12 | Emergency (ER) | payer MEDICAID ==
[~2019-10-03] VITALS: Ht 165.1 cm; Wt 70.0 kg
[~2019-10-03 14:12] MED LIST changes: +ONDA4TAB13 PO; +OXYC-302 PO
--- NOTE | 2019-10-03 14:35 | NUR ---
REPORT TO HAILEY Hernandez RN.
--- NOTE | 2019-10-03 15:25 | NUR ---
REPORT GIVEN TO SHIRA LORA
--- NOTE | 2019-10-03 16:35 | NUR ---
pt up to BR with one assist. PT READY TO GO HOME. WILL OBTAIN DISCHARGE INSTRUCTIONS FOR PATIENT.
[2019-10-03 17:32] VITALS: BP 136/75
== END 2019-10-03 17:35 | disposition home or self-care (01) ==
LOC: ED 14:25
DX: F10.220 Alcohol dependence with intoxication, uncomplicated (principal); Y90.0 Blood alcohol level of less than 20 mg/100 ml; Z91.14 Patient's other noncompliance with medication regimen
CPT/HCPCS: 36415; 71045; 80307; 99284

== ENCOUNTER 2019-10-06 13:30 | Emergency (ER) | payer MEDICAID ==
[~2019-10-06] VITALS: Ht 162.6 cm; Wt 66.0 kg
[2019-10-06 14:26] LABS: ANION GAP 17 mmol/L (5-15); CALCIUM 8.5 mg/dL (8.5-10.1); CHLORIDE 106 mmol/L (98-107); CREATININE 0.55 mg/dL (0.55-1.02)
--- NOTE | 2019-10-06 14:39 | NUR ---
SERUM GLUCOSE NOTED TO BE QUITE HYPOGLCEMIC: NO ACUTE SYMPTOMS (ALERT ORIETED, DRY SKIN.) PROVIDED WITH WATER/SPRITE/JUICE /PEANUT BUTTER AND CRACKERS
--- NOTE | 2019-10-06 15:00 | NUR ---
PT SITTING QUIETLY ON BED; EATING OSCAR CRACKERS AND DRINKING SPRITE. EXTRA PACKETS OF OSCAR CRACKERS AND WATER BOTTLE AT BEDSIDE.
[2019-10-06 15:15] VITALS: BP 130/89
== END 2019-10-06 15:18 | disposition home or self-care (01) ==
LOC: ED 13:37
DX: F41.1 Generalized anxiety disorder (principal); F10.20 Alcohol dependence, uncomplicated; R42 Dizziness and giddiness; G43.909 Migraine, unspecified, not intractable, without status migrainosus; J44.9 Chronic obstructive pulmonary disease, unspecified; E87.2 Acidosis; Y90.0 Blood alcohol level of less than 20 mg/100 ml
CPT/HCPCS: 36415; 80048; 93005; 99284

== ENCOUNTER 2019-10-06 17:27 | Emergency (ER) | payer MEDICAID ==
[~2019-10-06] VITALS: Ht 165.1 cm; Wt 80.0 kg
--- NOTE | 2019-10-06 18:49 | NUR ---
PT RESTING IN [facility]. NAD. VSS. NO NEEDS AT THIS TIME
--- NOTE | 2019-10-06 19:49 | NUR ---
PT RESTING IN [facility]. NAD. VSS
[2019-10-06 21:14] VITALS: BP 116/72
--- NOTE | 2019-10-06 21:14 | NUR ---
PT RESTING IN [facility]. NAD. VSS.
--- NOTE | 2019-10-06 21:54 | NUR ---
PT FAILED ROAD TEST. PT BACK IN BED. SIDE RAILS UP.
--- NOTE | 2019-10-06 22:31 | NUR ---
PT GIVEN CAB VOUCHER. PT ESCORTED OUT. AMBULATED WITH STEADY GAIT
== END 2019-10-06 22:34 | disposition home or self-care (01) ==
LOC: ED 17:30
DX: F10.229 Alcohol dependence with intoxication, unspecified (principal); G43.909 Migraine, unspecified, not intractable, without status migrainosus; Y90.0 Blood alcohol level of less than 20 mg/100 ml
CPT/HCPCS: 99283